=== PATIENT | female | born 1940 | race Caucasian/White ===

== ENCOUNTER 2021-04-22 16:24 | Inpatient (IN) | payer MEDICARE, SELFPAY ==
[2021-04-22] VITALS (8 sets, daily range): BP systolic 90–169; BP diastolic 40–114; PULSE 60–154; RESP 15–22; O2SAT 80–100; BMI 25.2
--- NOTE | ~2021-04-22 | XR_ITS ---
EXAMINATION: XR CHEST CLINICAL INFORMATION: Hypoxia. COMPARISON: None TECHNIQUE: Frontal view of the chest was obtained. FINDINGS: The lungs are well-expanded with bilateral patchy linear densities in both lungs but no focal consolidation or pleural effusion seen. The heart size and pulmonary vascularity is normal. No gross bony abnormality. There is mild dextroscoliosis. XR/XR chest 1V IMPRESSION: Increased bilateral parahilar linear markings in density suggestive of interstitial pneumonitis or edema. There is no pleural effusion.
--- NOTE | 2021-04-22 16:39 | ECG_ITS ---
Test Reason : arrthmia Blood Pressure : / mmHG Vent. Rate : 143 BPM Atrial Rate : 000 BPM P-R Int : 000 ms QRS Dur : 080 ms QT Int : 266 ms P-R-T Axes : 000 -14 069 degrees QTc Int : 410 ms Atrial fibrillation with rapid ventricular response Cannot exclude old Inferior infarct , age undetermined Abnormal ECG No previous ECGs available Referred By: Perla Plummer Electronically Signed By:ORACIO CONDON
--- NOTE | 2021-04-22 16:50 | ED_ITS ---
HPI - URI/Sore Throat General Chief Complaint: Dyspnea Stated Complaint: + COVID SOB 82% RA, 94% 10LPM FROM SNF PER EMS Time Seen by Provider: 04/22/21 16:36 Source: patient, family and EMS Mode of arrival: EMS Limitations: altered mental status History of Present Illness HPI Narrative: 80-year-old female presents via EMS from half-way facility for altered mental status and hypoxia. Tested COVID positive on 04/13/2021, has been on the COVID unit at half-way [facility]. Over the past few days patient's mental status has been declining. Patient presents with a heart rate in the 150s, respiration rate 20-26, O2 sat 90% on 10 L non-rebreather. Pertinent past history: other (COVID-19) Onset (ago): day(s) (3, COVID positive 04/13/2021) Consistency: constant Severity: severe Relieving factors: nothing Context: sick contacts Related Data Home Medications Medication Instructions Recorded Confirmed acetaminophen 325 mg tablet 650 mg PO Q4H PRN 04/22/21 04/22/21 apixaban 5 mg tablet (Eliquis) 1 tab PO BID 04/22/21 04/22/21 bisacodyl 10 mg rectal suppository 10 mg [place] DAILY PRN 04/22/21 04/22/21 cholestyramine (with sugar) 4 gram 1 packet PO BID 04/22/21 04/22/21 powder for susp in a packet loperamide 2 mg tablet 2 mg PO QID PRN 04/22/21 04/22/21 metformin 1,000 mg tablet 1 tab PO DAILY 04/22/21 04/22/21 metformin 500 mg tablet 1 tab PO BEDTIME 04/22/21 04/22/21 metoprolol tartrate 25 mg tablet 1 tab PO BID 04/22/21 04/22/21 multivitamin 1 tab PO DAILY 04/22/21 04/22/21 Allergies Allergy/AdvReac Type Severity Reaction Status Date / Time No Known Allergies Allergy Verified 04/22/21 16:39 Review of Systems Review of Systems: Yes Unobtainable due to mental status PMFSH Past Medical History Attestation statement: The following information was validated with the patient. Source: old records reviewed Social History Social History Advance Directives: No Advance Directives Information Provided: Yes Physical Exam Vital Signs: Vital Signs: Last Vital Signs Pulse 101 H 04/22/21 19:17 Resp 18 04/22/21 19:17 BP 169/95 H 04/22/21 19:17 Pulse Ox 100 04/22/21 19:17 BMI result Body Mass Index 25.2 Appearance: Responsive to painful stimulus. Moderate distress. Eyes: Pupils equal, round and reactive to light. ENT: Dry mucous membranes. Neck: Normal inspection. CVS: Tachycardic heart rate and rhythm. Apical pulses equal to extremities. Respiratory: Moderate respiratory distress. Diminished lung sounds throughout. Abdomen: Soft and nontender. Skin: Skin warm and dry. Pale. Extremities: No lower extremity edema. Neuro: No motor deficit. No sensory deficit. Course Course Course Narrative: 80-year-old female presents via EMS for hypoxia and altered mental status. Tested positive for COVID-19 on 04/13/2021. 5:00 p.m. discussion with family regarding code status and patient presentation. Family stated that patient has declined over the past few days, half-way facility reported that patient was combative, had altered mental status, refusing to eat and drink. Review of records from half-way facility in [facility] patient is being treated for UTI at this time with ceftriaxone. It was noted that patient's heart rate was in the 160s, EKG indicates AFib with RVR. Patient is on metoprolol, did not take her medications today per son's report of what the half-way facility had stated to him. Will give IV metoprolol. 1 L fluids. Will hold off on albuterol that was ordered earlier was patient is in AFib RVR. 5:25 p.m. nurse push 2.5 mg of metoprolol IV push, heart rate down to the 90s. 5:45 p.m. 2nd dose of 2.5 metoprolol given, patient is unable to follow directions, pulling at non-rebreather and IV. Order for mechanical soft restraint at this time. 5:55 p.m. discussion with family, Manuel her son who is POA, plan is for DNR DNI, okay for noninvasive ventilation and fluid resuscitation. This conversation and decision was also discussed in detail with Manuel and Dr. Bailey. 6:15 p.m. O2 sats dropped when patient's mask comes off her face. Mask secured to face by this [employer] with paper tape. O2 sat remains at 92-93% with mask in place. Patient does have unlabored respirations with mask on. Do not feel that CPAP is necessary at this time as long his mask stays in place. Unable to obtain 1-1 for this patient. Circulation continues to be brisk to the upper extremities. Soft restraints remain in place. 7:20 p.m. discussion with hospitalist, plan of care is to admit for COVID-19 hypoxia, COVID pneumonia, and altered mental status. 8:05 p.m. discussion with hospitalist, plan of care is for Cardizem drip and some IV Haldol with plan to discontinue soft restraints. QT interval 266, QTC 410 8:10 p.m. heart rate fluctuates between 90 and 110. Plan is to hold off on Car dizem drip and order p.r.n. IV Lopressor. Plan was discussed with hospitalist and we all agree with plan of care. Consultations Consultation #1: Earnest Time: 19:21 MDM - URI/Sore Throat MDM Narrative Medical decision making narrative: Sepsis, COVID pneumonia, UTI Differential Diagnosis Differential diagnosis: Likely upper respiratory infection, viral infection, bronchitis, influenza and pharyngitis Medical Records Attestation: I reviewed the patient's medical records. Lab Data Attestation: I reviewed the patient's lab results. Result diagrams: 04/22/21 17:15 04/22/21 18:57 Labs: Lab Results 04/22/21 04/22/21 04/22/21 Range/Units 17:15 17:15 17:15 WBC 6.8 (4.8-10.8) X10*3/uL RBC 5.26 (4.20-5.50) X10*6/uL Hgb 14.1 (12.0-16.0) g/dl Hct 42.7 (37.0-47.0) % MCV 81.2 (80.0-98.0) fL MCH 26.8 L (27.0-33.0) pg MCHC 33.0 (31.0-35.0) g/dl RDW 15.6 (11.0-16.0) % Plt Count 260 (160-400) X10*3/uL MPV 9.1 L (9.4-12.3) fL Immature Gran % (Auto) 1.3 H (0.0-0.4) % Neut % (Auto) 84.5 H (45-73) % Lymph % (Auto) 8.1 L (20-40) % [place] % (Auto) 6.0 (2-11) % Eos % (Auto) 0.0 (0-4) % Baso % (Auto) 0.1 (0-2) % Lymph # (Auto) 0.6 L (1.2-4.9) X10*3/uL [place] # (Auto) 0.4 (0.1-1.2) X10*3/uL Eos # (Auto) 0.0 (0.0-0.4) X10*3/uL Baso # (Auto) 0.0 (0.0-0.2) X10*3/uL Abs Immat Gran (auto) 0.09 H (0.00-0.03) X10*3/uL Absolute Neuts (auto) 5.8 (2.0-8.3) x10*3/uL Absolute Nucleated RBC 0.000 (0.0-0.012) X10*3/uL Nucleated RBC % (auto) 0.0 (0.0-0.2) /100WBC PT (9.9-13.0) SEC INR (0.9-1.1) APTT (24.1-38.0) SEC VBG pH (7.32-7.43) VBG pCO2 mmHg VBG pO2 mmHg VBG HCO3 (22-26) mmol/L VBG O2 Saturation % VBG Base Excess mmol/L Sodium (135-145) mmol/L Potassium (3.3-5.1) mmol/L Chloride (96-108) mmol/L Carbon Dioxide (22-29) mmol/L Anion Gap (12-20) BUN (9-16) mg/dL Creatinine (0.5-1.4) mg/dL Estim Creat Clear Calc Estimated GFR Random Glucose (60-115) mg/dL Lactic Acid 2.0 (0.5-2.0) mmol/L Calcium (8.4-10.2) mg/dL Total Bilirubin (0.0-1.0) mg/dL Direct Bilirubin (0.0-0.5) mg/dL AST (5-31) U/L ALT (0-31) U/L Alkaline Phosphatase (39-117) U/L Troponin I High Sens 10.8 (<3.5-17.0) ng/L Total Protein (6.5-8.0) g/dL Albumin (3.5-5.0) g/dL Lipase (8-78) U/L COVID-19 (MELINDA) (Negative) COVID-19 Clin Com 04/22/21 04/22/21 04/22/21 Range/Units 17:27 17:27 17:32 WBC (4.8-10.8) X10*3/uL RBC (4.20-5.50) X10*6/uL Hgb (12.0-16.0) g/dl Hct (37.0-47.0) % MCV (80.0-98.0) fL MCH (27.0-33.0) pg MCHC (31.0-35.0) g/dl RDW (11.0-16.0) % Plt Count (160-400) X10*3/uL MPV (9.4-12.3) fL Immature Gran % (Auto) (0.0-0.4) % Neut % (Auto) (45-73) % Lymph % (Auto) (20-40) % [place] % (Auto) (2-11) % Eos % (Auto) (0-4) % Baso % (Auto) (0-2) % Lymph # (Auto) (1.2-4.9) X10*3/uL [place] # (Auto) (0.1-1.2) X10*3/uL Eos # (Auto) (0.0-0.4) X10*3/uL Baso # (Auto) (0.0-0.2) X10*3/uL Abs Immat Gran (auto) (0.00-0.03) X10*3/uL Absolute Neuts (auto) (2.0-8.3) x10*3/uL Absolute Nucleated RBC (0.0-0.012) X10*3/uL Nucleated RBC % (auto) (0.0-0.2) /100WBC PT 18.5 H (9.9-13.0) SEC INR 1.6 H (0.9-1.1) APTT 33.6 (24.1-38.0) SEC VBG pH 7.20 L* (7.32-7.43) VBG pCO2 27 mmHg VBG pO2 46 mmHg VBG HCO3 11 L (22-26) mmol/L VBG O2 Saturation 68.0 % VBG Base Excess -15.0 mmol/L Sodium (135-145) mmol/L Potassium (3.3-5.1) mmol/L Chloride (96-108) mmol/L Carbon Dioxide (22-29) mmol/L Anion Gap (12-20) BUN (9-16) mg/dL Creatinine (0.5-1.4) mg/dL Estim Creat Clear Calc Estimated GFR Random Glucose (60-115) mg/dL Lactic Acid (0.5-2.0) mmol/L Calcium (8.4-10.2) mg/dL Total Bilirubin (0.0-1.0) mg/dL Direct Bilirubin (0.0-0.5) mg/dL AST (5-31) U/L ALT (0-31) U/L Alkaline Phosphatase (39-117) U/L Troponin I High Sens (<3.5-17.0) ng/L Total Protein (6.5-8.0) g/dL Albumin (3.5-5.0) g/dL Lipase (8-78) U/L COVID-19 (MELINDA) Positive A (Negative) COVID-19 Clin Com See Note 04/22/21 Range/Units 18:57 WBC (4.8-10.8) X10*3/uL RBC (4.20-5.50) X10*6/uL Hgb (12.0-16.0) g/dl Hct (37.0-47.0) % MCV (80.0-98.0) fL MCH (27.0-33.0) pg MCHC (31.0-35.0) g/dl RDW (11.0-16.0) % Plt Count (160-400) X10*3/uL MPV (9.4-12.3) fL Immature Gran % (Auto) (0.0-0.4) % Neut % (Auto) (45-73) % Lymph % (Auto) (20-40) % [place] % (Auto) (2-11) % Eos % (Auto) (0-4) % Baso % (Auto) (0-2) % Lymph # (Auto) (1.2-4.9) X10*3/uL [place] # (Auto) (0.1-1.2) X10*3/uL Eos # (Auto) (0.0-0.4) X10*3/uL Baso # (Auto) (0.0-0.2) X10*3/uL Abs Immat Gran (auto) (0.00-0.03) X10*3/uL Absolute Neuts (auto) (2.0-8.3) x10*3/uL Absolute Nucleated RBC (0.0-0.012) X10*3/uL Nucleated RBC % (auto) (0.0-0.2) /100WBC PT (9.9-13.0) SEC INR (0.9-1.1) APTT (24.1-38.0) SEC VBG pH (7.32-7.43) VBG pCO2 mmHg VBG pO2 mmHg VBG HCO3 (22-26) mmol/L VBG O2 Saturation % VBG Base Excess mmol/L Sodium 142 (135-145) mmol/L Potassium 4.3 (3.3-5.1) mmol/L Chloride 115 H (96-108) mmol/L Carbon Dioxide 13 L (22-29) mmol/L Anion Gap 18 (12-20) BUN 46 H (9-16) mg/dL Creatinine 1.24 (0.5-1.4) mg/dL Estim Creat Clear Calc 32.7 Estimated GFR 42 Random Glucose 139 H (60-115) mg/dL Lactic Acid (0.5-2.0) mmol/L Calcium 9.2 (8.4-10.2) mg/dL Total Bilirubin 0.3 (0.0-1.0) mg/dL Direct Bilirubin 0.2 (0.0-0.5) mg/dL AST 23 (5-31) U/L ALT 14 (0-31) U/L Alkaline Phosphatase 96 (39-117) U/L Troponin I High Sens (<3.5-17.0) ng/L Total Protein 6.8 (6.5-8.0) g/dL Albumin 3.4 L (3.5-5.0) g/dL Lipase 25 (8-78) U/L COVID-19 (MELINDA) (Negative) COVID-19 Clin Com Imaging Data Chest x-ray: Attestation: I personally reviewed and interpreted this imaging study as follows: Radiologist's impression: EXAMINATION: XR CHEST CLINICAL INFORMATION: Hypoxia. COMPARISON: None TECHNIQUE: Frontal view of the chest was obtained. FINDINGS: The lungs are well-expanded with bilateral patchy linear densities in both lungs but no focal consolidation or pleural effusion seen. The heart size and pulmonary vascularity is normal. No gross bony abnormality. There is mild dextroscoliosis. XR/XR chest 1V IMPRESSION: Increased bilateral parahilar linear markings in density suggestive of interstitial pneumonitis or edema. ? There is no pleural effusion. ECG Data Attestation: I personally reviewed and interpreted this ECG as follows: ECG interpretation date: 04/22/21 ECG interpretation time: 17:01 Prior ECG tracings: not available for review Interpretation: Vent. rate 143 BPM [place] interval * ms QRS duration 80 ms QT/QTc 266/410 ms P-R-T axes * -14 69 Atrial fibrillation with rapid ventricular response Inferior infarct , age undetermined Abnormal ECG No previous ECGs available Critical Care Time Critical Care Time Critical Care Time: Yes Total Critical Care Time: 65 Attestation: I have personally provided critical care time exclusive of time spent on separately billable procedures. Time includes review of laboratory data, radiology results, discussion with consultants, and monitoring for potential decompensation. Interventions were performed as documented. Discharge Plan Discharge Clinical Impression: 2019 novel coronavirus-infected pneumonia (NCIP), Hypoxia Altered mental status Qualifiers: Altered mental status type: unspecified Qualified Code(s): R41.82 - Altered mental status, unspecified Patient Disposition: Admitted As Inpatient
[2021-04-22] MEDS: Metoprolol Tartrate 5 MG/5 ML VIAL IVPUSH (17:20)
--- NOTE | 2021-04-22 17:20 | PC.NURSE ---
started to give metoprol 5g iv but pt's only received 2.5mg and hr dropped to the 70-90's, bp holding at 130/87 still a-fib on the monitor tara the pa aware pt continuos on pulling all medical equipment off of her, pt is currently on the non-rebreather ..
[2021-04-22 17:21] LABS: MANUAL DIFF FLAG NO
[2021-04-22] MEDS: Metoprolol Tartrate 5 MG/5 ML VIAL 2.5 MG IVPUSH ×2 (17:21→17:45)
[2021-04-22 17:23] LABS: Basophils Percent Auto 0.1 % (0-2); Hematocrit 42.7 % (37.0-47.0); Hemoglobin 14.1 g/dl (12.0-16.0); Imm Gran Abs Auto 0.09 X10*3/uL (0.00-0.03); Imm Gran Pct Auto 1.3 % (0.0-0.4); Lymphocytes Absolute Auto 0.6 X10*3/uL (1.2-4.9); Lymphocytes Percent Auto 8.1 % (20-40); Mean Corpuscular Hemoglobin 26.8 pg (27.0-33.0); Mean Corpuscular Volume 81.2 fL (80.0-98.0); Mean Platelet Volume 9.1 fL (9.4-12.3); Monocytes Absolute Auto 0.4 X10*3/uL (0.1-1.2); Neutrophils Absolute Auto 5.8 x10*3/uL (2.0-8.3); Neutrophils Percent Auto 84.5 % (45-73); Platelet Count 260 X10*3/uL (160-400); Red Blood Count 5.26 X10*6/uL (4.20-5.50); Red Cell Distribution Width 15.6 % (11.0-16.0); White Blood Count 6.8 X10*3/uL (4.8-10.8)
[2021-04-22] MEDS: dexAMETHasone sod phosphate 10 MG/ML VIAL IVPUSH (17:23)
[2021-04-22] MEDS: 0.9 % Sodium Chloride 1,000 ML 999 ML IVCONT (17:24)
[2021-04-22 17:41] LABS: VBG HCO3 11 mmol/L (22-26); VBG pCO2 27 mmHg; VBG pO2 46 mmHg
[2021-04-22 17:41] LABS: INTERNATIONAL NORM RATIO 1.6 (0.9-1.1); Prothrombin Time 18.5 SEC (9.9-13.0)
[2021-04-22 17:42] LABS: Venous Blood Gas Refer to POC result
[2021-04-22 17:44] LABS: Partial Thromboplastin Time 33.6 SEC (24.1-38.0)
[2021-04-22 17:49] LABS: COVID-19 Test Positive (Negative); IDNOW Serial# 9DD0AD1C
[2021-04-22 17:53] LABS: Troponin-I High Sensitivity 10.8 ng/L (<3.5-17.0)
--- NOTE | 2021-04-22 18:14 | PC.NURSE ---
pt is currently in soft restrains pulling every medical equipment off
[2021-04-22] MEDS: Azithromycin 500 MG in 0.9 % Sodium Chloride 250 ML 125 MG IV (19:16)
[2021-04-22 19:26] LABS: Alanine Aminotransferase 14 U/L (0-31); Albumin Level 3.4 g/dL (3.5-5.0); Alkaline Phosphatase 96 U/L (39-117); Anion Gap 18 (12-20); Aspartate Amino Transferase 23 U/L (5-31); Bilirubin Direct 0.2 mg/dL (0.0-0.5); Bilirubin Total 0.3 mg/dL (0.0-1.0); Blood Urea Nitrogen 46 mg/dL (9-16); Calcium 9.2 mg/dL (8.4-10.2); Carbon Dioxide 13 mmol/L (22-29); Chloride 115 mmol/L (96-108); Creatinine Clr Calc Pharmacy 32.7; Estimated Glomerular Filt Rate 42; Glucose Random 139 mg/dL (60-115); Lipase 25 U/L (8-78); Potassium 4.3 mmol/L (3.3-5.1); Sodium 142 mmol/L (135-145); Total Protein 6.8 g/dL (6.5-8.0)
[2021-04-22] MEDS: Haloperidol Lactate 5 MG/ML VIAL 2.5 MG IVPUSH (20:28)
--- NOTE | 2021-04-22 20:28 | PHA.MEDREC ---
Pharmacy Consult ? Medication Reconciliation Pharmacy has completed the medication reconciliation. Med list from [facility]. No remarkable issues. Cynthia Link RPh
--- NOTE | 2021-04-22 21:51 | PM.IMHP ---
History of Present Illness Date of Service: 04/22/21 Chief Complaint: AMS This is an 80-year-old female with history of AFib, diabetes who sent to the hospital from long-term with altered mental status. Patient had tested positive for COVID-19 on 04/13/2021 and has been at the COVID unit at the long-term since then but has developed altered mental status over the past few days and therefore sent to the ED for further evaluation. History is obtained mostly from ED PA as patient is very altered and unable to give her own history. On arrival to the ED patient was found to have heart rate of 154 in AFib with RVR, respiratory rate of 22, blood pressure 156/80, satting 99% on non-rebreather labs were found to be significant for pH of 7.20 bicarb of 13, BUN of 44, creatinine of 1.24, BNP of 347, and a UA that is positive for leukocyte Estrace and WBC. COVID-19 positive. Chest x-ray shows increased bilateral per her all linear markings in suggestive of PNA vs edema Pt given multiple dose iv push Cardizem with some affect on the heart rate but heart rate keeps going up to the 120s. Patient started on Cardizem drip. Unable to obtain accurate past medical history as patient is altered. some Past medical history is a presumed her home medications. Review of Systems Review of Systems: Yes Unobtainable due to mental condition [facility] Medical History (Updated 04/23/21 @ 05:50 by Karon Tinoco MD) Atrial fibrillation Diabetes Social History Advance Directives: No Advance Directives Information Provided: Yes Meds Allergies Allergy/AdvReac Type Severity Reaction Status Date / Time No Known Allergies Allergy Verified 04/22/21 16:39 Home Medications Medication Instructions Recorded Confirmed Last Taken Type acetaminophen 325 mg tablet 650 mg PO Q4H PRN 04/22/21 04/22/21 Unknown History apixaban 5 mg tablet (Eliquis) 1 tab PO BID 04/22/21 04/22/21 04/22/21 History bisacodyl 10 mg rectal suppository 10 mg [place] DAILY PRN 04/22/21 04/22/21 Unknown History cholestyramine (with sugar) 4 gram 1 packet PO BID 01/02/0104/22/21 04/22/21 History powder for susp in a packet loperamide 2 mg tablet 2 mg PO QID PRN 04/22/21 04/22/21 Unknown History metformin 1,000 mg tablet 1 tab PO DAILY 04/22/21 04/22/21 04/22/21 History metformin 500 mg tablet 1 tab PO BEDTIME 04/22/21 04/22/21 04/21/21 History metoprolol tartrate 25 mg tablet 1 tab PO BID 04/22/21 04/22/21 04/22/21 History multivitamin 1 tab PO DAILY 04/22/21 04/22/21 04/22/21 History Physical Exam Vital Signs and Narrative: Vital Signs: Last Vital Signs Pulse 102 H 04/22/21 21:41 Resp 15 04/22/21 21:41 BP 134/83 04/22/21 21:41 Pulse Ox 99 04/22/21 21:41 BMI result Body Mass Index 25.2 Const: Other: somnolent, arousable, confused Eyes: General: appearance normal, both eyes and all related structures Resp: Other: tachypnea, crackles bilaterally Cardio: Other: tachycardic, regular rhythm GI: Palpation (GI): Soft to palpation Auscultation: normal bowel sounds Skin: General skin exam: no rashes or lesions noted Neuro: Other: somnolent, confused Extrem: General: Yes normal to inspection and Yes no pedal edema Results Labs CBC and Chem 7: 04/22/21 17:15 04/22/21 21:40 Labs: Laboratory Results - last 24 hr 04/22/21 04/22/21 04/22/21 17:15 17:15 17:15 MCV 81.2 MCH 26.8 L MCHC 33.0 RDW 15.6 Plt Count 260 MPV 9.1 L Immature Gran % (Auto) 1.3 H Neut % (Auto) 84.5 H Lymph % (Auto) 8.1 L [place] % (Auto) 6.0 Eos % (Auto) 0.0 Baso % (Auto) 0.1 Lymph # (Auto) 0.6 L [place] # (Auto) 0.4 Eos # (Auto) 0.0 Baso # (Auto) 0.0 Abs Immat Gran (auto) 0.09 H Absolute Neuts (auto) 5.8 Absolute Nucleated RBC 0.000 Nucleated RBC % (auto) 0.0 PT INR APTT VBG pH VBG pCO2 VBG pO2 VBG HCO3 VBG O2 Saturation VBG Base Excess Anion Gap Estim Creat Clear Calc Estimated GFR Random Glucose Lactic Acid 2.0 Calcium Total Bilirubin Direct Bilirubin AST ALT Alkaline Phosphatase Troponin I High Sens 10.8 Total Protein Albumin Lipase COVID-19 (MELINDA) COVID-19 Clin Com 04/22/21 04/22/21 04/22/21 17:27 17:27 17:32 MCV MCH MCHC RDW Plt Count MPV Immature Gran % (Auto) Neut % (Auto) Lymph % (Auto) [place] % (Auto) Eos % (Auto) Baso % (Auto) Lymph # (Auto) [place] # (Auto) Eos # (Auto) Baso # (Auto) Abs Immat Gran (auto) Absolute Neuts (auto) Absolute Nucleated RBC Nucleated RBC % (auto) PT 18.5 H INR 1.6 H APTT 33.6 VBG pH 7.20 L* VBG pCO2 27 VBG pO2 46 VBG HCO3 11 L VBG O2 Saturation 68.0 VBG Base Excess -15.0 Anion Gap Estim Creat Clear Calc Estimated GFR Random Glucose Lactic Acid Calcium Total Bilirubin Direct Bilirubin AST ALT Alkaline Phosphatase Troponin I High Sens Total Protein Albumin Lipase COVID-19 (MELINDA) Positive A COVID-19 [employer] Com See Note 04/22/21 18:57 MCV MCH MCHC RDW Plt Count MPV Immature Gran % (Auto) Neut % (Auto) Lymph % (Auto) [place] % (Auto) Eos % (Auto) Baso % (Auto) Lymph # (Auto) [place] # (Auto) Eos # (Auto) Baso # (Auto) Abs Immat Gran (auto) Absolute Neuts (auto) Absolute Nucleated RBC Nucleated RBC % (auto) PT INR APTT VBG pH VBG pCO2 VBG pO2 VBG HCO3 VBG O2 Saturation VBG Base Excess Anion Gap 18 Estim Creat Clear Calc 32.7 Estimated GFR 42 Random Glucose 139 H Lactic Acid Calcium 9.2 Total Bilirubin 0.3 Direct Bilirubin 0.2 AST 23 ALT 14 Alkaline Phosphatase 96 Troponin I High Sens Total Protein 6.8 Albumin 3.4 L Lipase 25 COVID-19 (MELINDA) COVID-19 Clin Com Imaging Radiologist's Impressions: Impressions Chest X-Ray 04/22/21 18:20 IMPRESSION: Increased bilateral parahilar linear markings in density suggestive of interstitial pneumonitis or edema. There is no pleural effusion. Assessment and Plan (1) 2019 novel coronavirus-infected pneumonia (NCIP): Status: Acute (2) Acute respiratory failure with hypoxia: Status: Acute (3) Encephalopathy: Status: Acute (4) UTI (urinary tract infection): Status: Acute (5) Metabolic acidosis: Status: Acute 80-year-old female with past medical history of diabetes as well as AFib who presents to the hospital with altered mental status from long-term. # Encephalopathy - most likely multifactorial in the setting of hypoxia, COVID-19 infection as well as UTI - will treat UTI with IV antibiotics, oxygen, as well as dexamethasone for COVID-19 - Haldol p.r.n. for agitation and restlessness ( patient was pulling at her oxygen mask and IV lines and therefore given 2 doses of IV Haldol) - follow mentation - baseline is alert and oriented # acute hypoxic respiratory failure - secondary to COVID-19 infection as well as CHF given her elevated BNP as well as edema - will add dexamethasone - continue oxygen as needed - Titrate o2 as tolerated # UTI - positive UA - will treat with IV antibiotics - follow cultures # metabolic acidosis - unclear with driving metabolic acidosis possibly secondary to elevated urea as BUN is slightly elevated - normal lactic acid - no increase in CO2 - patient was on bicarb D5 water fluid but given her elevated BNP and possible edema seen on chest x-ray fluids have been stopped - follow VBG as well as BMP # CHF - has elevated BNP, chest x-ray demonstrating edema - no documented history of CHF, not on any diuretic - will start with 40 IV Lasix - will obtain echocardiogram - consult cardiology # AFib with RVR - most likely secondary to all of the above - on Cardizem drip - continue Eliquis and metoprolol # diabetes - will hold metformin - start low-dose sliding scale insulin - diabetic diet DVT prophylaxis: Eliquis Quality Stroke Does the patient have a stroke diagnosis?: No VTE Prior VTE?: No VTE Risk Level:: Medical - moderate - high VTE Device Contraindication: Treatment Not Indicated VTE Drug Contraindication: N/A - Med Ordered
[2021-04-22 21:56] LABS: Venous Blood Gas Refer to POC result
[2021-04-22 21:58] LABS: VBG Base Excess -12.9 mmol/L; VBG HCO3 12 mmol/L (22-26); VBG pCO2 25 mmHg; VBG pH 7.27 (7.32-7.43); VBG pO2 46 mmHg
[2021-04-22 22:00] LABS: Anion Gap 19 (12-20); Blood Urea Nitrogen 44 mg/dL (9-16); Calcium 9.4 mg/dL (8.4-10.2); Carbon Dioxide 12 mmol/L (22-29); Chloride 116 mmol/L (96-108); Creatinine Clr Calc Pharmacy 33.5; Estimated Glomerular Filt Rate 43; Glucose Random 141 mg/dL (60-115); Potassium 4.6 mmol/L (3.3-5.1); Sodium 142 mmol/L (135-145)
[2021-04-22 22:06] LABS: B Type Natriuretic Peptide 347 pg/mL (<100)
[2021-04-22 22:11] LABS: Appearance Urine CLOUDY; Color Urine YELLOW; Glucose Urine UA NEG (NEG); Leukocyte Esterase Urine 3+ (NEG); Nitrite Urine NEG (NEG); Specific Gravity - Urine 1.025 (1.005-1.025); UACC Culture Trigger YES; Urine Blood 3+ (NEG); Urine Ketones 15 MG/DL (NEG); Urine Protein 2+ MG/DL (NEG-TRACE)
[2021-04-22 22:20] LABS: Squamous Epithelial Cell Urine 2+ /LPF; WBC Urine TNTC /HPF (0-4)
[2021-04-22 22:21] LABS: Amorphous Sediment Urine TRACE /LPF; Bacteria Urine TRACE /LPF
[2021-04-22] MEDS: cefTRIAXone sodium 1 GM in 0.9 % Sodium Chloride 50 ML IV (22:36)
[2021-04-23] VITALS (14 sets, daily range): BP systolic 82–166; BP diastolic 54–105; PULSE 61–133; RESP 12–28; TEMP 36.3–36.4; O2SAT 94–100
[2021-04-23] MEDS: Sodium Bicarbonate 8.4% 100 MEQ in Dextrose 5 % 900 ML 50 MEQ IV (01:24)
--- NOTE | 2021-04-23 01:45 | PC.NURSE ---
this RN walked into room to medicate pt and found pt had removed NRB and was pulling at IV lines/rn cardiac lines. This RN secured NRB on face, reapplied soft restraints per provider order and started fluids per JUN. CMS+ bilateral wrists, no evidence of skin breakdown, radial pulses palpable bilaterally, cap refill <2 seconds. pt 02 sat 94% on NRB but pt tachycardic and hypertensive at this time. pt remains agitated. Hospitalist notified Respiratory therapy contact to assess pt for oxygen needs/to see if pt would benefit from different type of 02 administration.
[2021-04-23] MEDS: Haloperidol Lactate 5 MG/ML VIAL 2.5 MG IVPUSH (01:53)
[2021-04-23] MEDS: Metoprolol Tartrate 5 MG/5 ML VIAL 2.5 MG IVPUSH (01:59)
--- NOTE | 2021-04-23 02:10 | PC.NURSE ---
pt switched to Shah nasal cannula at 15L by RT pt now satting 100% on 15L Shah nasal cannula
[2021-04-23] MEDS: Morphine Sulfate 2 MG/ML CARTRIDGE IVPUSH (03:00)
[2021-04-23] MEDS: dilTIAZem HCL 125 MG in 0.9 % Sodium Chloride 100 ML 10 MG IVCONT (03:19)
[2021-04-23 06:37] LABS: MANUAL DIFF FLAG NO
[2021-04-23 06:39] LABS: Venous Blood Gas Refer to POC result
[2021-04-23 06:40] LABS: Basophils Percent Auto 0.2 % (0-2); Hematocrit 38.5 % (37.0-47.0); Hemoglobin 12.6 g/dl (12.0-16.0); Imm Gran Abs Auto 0.09 X10*3/uL (0.00-0.03); Lymphocytes Absolute Auto 0.5 X10*3/uL (1.2-4.9); Lymphocytes Percent Auto 10.1 % (20-40); Mean Corpuscular HGB Conc 32.7 g/dl (31.0-35.0); Mean Corpuscular Hemoglobin 26.5 pg (27.0-33.0); Mean Corpuscular Volume 80.9 fL (80.0-98.0); Mean Platelet Volume 9.7 fL (9.4-12.3); Monocytes Absolute Auto 0.3 X10*3/uL (0.1-1.2); Monocytes Percent Auto 6.1 % (2-11); Neutrophils Absolute Auto 3.7 x10*3/uL (2.0-8.3); Neutrophils Percent Auto 81.6 % (45-73); Platelet Count 254 X10*3/uL (160-400); Red Blood Count 4.76 X10*6/uL (4.20-5.50); Red Cell Distribution Width 15.6 % (11.0-16.0); VBG Base Excess -15.2 mmol/L; VBG HCO3 10 mmol/L (22-26); VBG pCO2 23 mmHg; VBG pH 7.24 (7.32-7.43); VBG pO2 53 mmHg; White Blood Count 4.6 X10*3/uL (4.8-10.8)
[2021-04-23 07:10] LABS: Anion Gap 20 (12-20); Blood Urea Nitrogen 48 mg/dL (9-16); Calcium 9.5 mg/dL (8.4-10.2); Carbon Dioxide 12 mmol/L (22-29); Chloride 115 mmol/L (96-108); Creatinine Clr Calc Pharmacy 30.3; Estimated Glomerular Filt Rate 38; Glucose Random 242 mg/dL (60-115); Potassium 4.3 mmol/L (3.3-5.1); Sodium 143 mmol/L (135-145)
[2021-04-23 07:32] LABS: Glucose, Whole Blood 192 mg/dL (60-115)
[2021-04-23] MEDS: Insulin Lispro 100 UNIT/ML 3 ML VIAL SUBCUT (08:41)
[2021-04-23] MEDS: dexAMETHasone sod phosphate 4 MG/ML VIAL 6 MG IVPUSH (08:42)
[2021-04-23] MEDS: Furosemide 40 MG/4 ML VIAL IVPUSH (08:44)
--- NOTE | 2021-04-23 08:55 | PC.NURSE ---
pt cleaned up and repositioned. soft restraint released x30 mins. while in room. Soft restraint reapplied because pt continued taking off n/c and library monitor leads. pt spit out all po meds. IV meds given as documented. HR low to mid 120s. Pt seen by Dr. Padilla, continue Cardizem drip at 5ml/hr. pt rest comfortably after repositioned. will continue to monitor.
--- NOTE | 2021-04-23 09:38 | MHC.CM.PN ---
PATIENT IS IN FROM [facility] HCP IS SON, BIGG ([phone]) POTENTIAL PLAN IS FOR PATIENT TO RETURN TO FACILITY; HOWEVER THIS WILL NEED TO BE DISCUSSED WITH BIGG AT TIME OF DC, HE IS FEELING DISCOURAGED ABOUT THE CARE OF FACILITIES. CASE MANAGEMENT FOLLOWING FOR PATIENT'S RETURN. IMM 04/23 DISCUSSED AND ORIGINAL MAILED TO BIGG AT ADDRESS ON FILE PER REQUEST.
--- NOTE | 2021-04-23 11:16 | PM.CNCAR ---
History of Present Illness History of Present Illness Date of Service: 04/23/21 Chief complaint: Covid Hypoxia, Afib with rvr, UTI Narrative: This is a cardiology consultation regarding atrial fibrillation. Patient herself is not able to give any information whatsoever. She was sent from detention with altered mental status. She had apparently tested positive for COVID-19 on the 1st of this month- again +ve yesterday. She was at the COVID unit in the detention but then developed about altered mental status and then sent to the ER. She was then found to be in atrial fibrillation rapid rate. She is now on Cardizem drip. Review of Systems Review of Systems: Unable to obtain. Due to mental status. [facility] Past Medical History Medical History (Updated 04/23/21 @ 05:50 by Karon Tinoco MD) Atrial fibrillation Diabetes Family History Pertinent family history: Unable to obtain due to mental status. Social History Social History Advance Directives: No Advance Directives Information Provided: Yes service: No Current occupational status: retired [employer] Allergies Allergy/AdvReac Type Severity Reaction Status Date / Time No Known Allergies Allergy Verified 04/22/21 16:39 Active Medications: Current Medications Acetaminophen (Acetaminophen Supp 650 Mg Supp.Rect) 650 mg [place] Q6H PRN PRN Reason: Pain, Mild (Pain Scale 1-3) Apixaban (Apixaban 5 Mg Tablet) 5 mg PO BID [facility] Last Admin: 04/23/21 08:50 Dose: Not Given Documented by: Bisacodyl (Bisacodyl 10 Mg Supp.Rect) 10 mg [place] DAILY PRN PRN Reason: Constipation Cholestyramine Resin (Cholestyramine (With Sugar) 4 Gm Powd.Pack) 4 gm PO BID [facility] Last Admin: 04/23/21 08:50 Dose: Not Given Documented by: Dexamethasone Sodium Phosphate (Dexamethasone Sod Phosphate 4 Mg/Ml Vial) 6 mg IVPUSH DAILY [facility] Last Admin: 04/23/21 08:42 Dose: 6 mg Documented by: Dextrose (Dextrose 50 % 25 Gm/50 Ml Vial) 25 gm IVPUSH Q15M PRN; Protocol PRN Reason: per Hypoglycemia Standing Ord. Furosemide (Furosemide 40 Mg/4 Ml Vial) 40 mg IVPUSH DAILY [facility]; Protocol Last Admin: 04/23/21 08:44 Dose: 40 mg Documented by: Glucose (Glucose Gel 15 Gm Gel..Gram.) 15 gm PO Q15M PRN; Protocol PRN Reason: per Hypoglycemia Standing Ord. Ceftriaxone Sodium 1 gm/ (Sodium Chloride) 50 mls @ 100 mls/hr IV Q24H [facility] Last Infusion: 04/22/21 23:06 Dose: Infused Documented by: Diltiazem HCl 125 mg/ Sodium (Chloride) 125 mls @ 0 mls/hr IVCONT .Q0M [facility]; Protocol Last Admin: 04/23/21 03:19 Dose: 10 mg/hr, 10 mls/hr Documented by: Insulin Human Lispro (Insulin Lispro 100 Unit/Ml 3 Ml Vial) 0 unit SUBCUT QIDACHS [facility]; Protocol Last Admin: 04/23/21 08:41 Dose: 2 unit Documented by: Loperamide HCl (Loperamide Hcl 2 Mg Capsule) 2 mg PO QID PRN PRN Reason: Diarrhea Metoprolol Tartrate (Metoprolol Tartrate 25 Mg Tablet) 25 mg PO BID [facility]; Protocol Last Admin: 04/23/21 09:49 Dose: Not Given Documented by: Metoprolol Tartrate (Metoprolol Tartrate 5 Mg/5 Ml Vial) 2.5 mg IVPUSH Q6H PRN PRN Reason: HR >120 Last Admin: 04/23/21 01:59 Dose: 2.5 mg Documented by: Multivitamins/Vitamin C (Multivitamin Tablet) 1 tab PO DAILY [facility] Last Admin: 04/23/21 09:47 Dose: Not Given Documented by: Ondansetron HCl (Ondansetron Hcl 4 Mg/2 Ml Vial) 4 mg IVPUSH Q8H PRN PRN Reason: Nausea and Vomiting Sodium Chloride (0.9 % Sodium Chloride Flush 3 Ml Syringe) 3 ml IVFLUSH QSHIFT [facility] Last Admin: 04/23/21 08:48 Dose: Not Given Documented by: Home Medications Medication Instructions Recorded Confirmed Last Taken Type acetaminophen 325 mg tablet 650 mg PO Q4H PRN 04/22/21 04/22/21 Unknown History apixaban 5 mg tablet (Eliquis) 1 tab PO BID 04/22/21 04/22/21 04/22/21 History bisacodyl 10 mg rectal suppository 10 mg [place] DAILY PRN 04/22/21 04/22/21 Unknown History cholestyramine (with sugar) 4 gram 1 packet PO BID 04/22/21 04/22/21 04/22/21 History powder for susp in a packet loperamide 2 mg tablet 2 mg PO QID PRN 04/22/21 04/22/21 Unknown History metformin 1,000 mg tablet 1 tab PO DAILY 04/22/21 04/22/21 04/22/21 History metformin 500 mg tablet 1 tab PO BEDTIME 04/22/21 04/22/21 04/21/21 History metoprolol tartrate 25 mg tablet 1 tab PO BID 04/22/21 04/22/21 04/22/21 History multivitamin 1 tab PO DAILY 04/22/21 04/22/21 04/22/21 History Physical Exam Vital Signs: Vital Signs: Last Vital Signs Temp 97.6 F 04/23/21 07:02 Pulse 102 H 04/23/21 07:02 Resp 14 04/23/21 07:02 BP 151/82 H 04/23/21 07:02 Pulse Ox 100 04/23/21 07:02 BMI result Body Mass Index 25.2 Const: General: no acute distress HENMT: Other: Unremarkable Neck: Neck: Yes normal visual inspection Chest: Chest palpation & inspection: normal inspection of the chest Resp: Auscultation: no crackles and no wheezes Cardio: Palpation: normal PMI Heart sounds: S1 normal heart sound present, S2 normal heart sound present, no gallops, no murmurs and no rubs GI: Palpation (GI): Soft to palpation Back/Spine/Pelvis: Other: unremarkable Skin: Lesions: other Neuro: Cranial nerves: Yes Other cranial nerve findings present Extrem: General: Yes other Psych: Mental Status: other Objective Labs and Meds Result diagrams: 04/23/21 06:30 04/23/21 06:30 Lab results: Laboratory Results - last 24 hr 04/22/21 04/22/21 04/22/21 17:15 17:15 17:15 WBC 6.8 RBC 5.26 Hgb 14.1 Hct 42.7 MCV 81.2 MCH 26.8 L MCHC 33.0 RDW 15.6 Plt Count 260 MPV 9.1 L Immature Gran % (Auto) 1.3 H Neut % (Auto) 84.5 H Lymph % (Auto) 8.1 L [place] % (Auto) 6.0 Eos % (Auto) 0.0 Baso % (Auto) 0.1 Lymph # (Auto) 0.6 L [place] # (Auto) 0.4 Eos # (Auto) 0.0 Baso # (Auto) 0.0 Abs Immat Gran (auto) 0.09 H Absolute Neuts (auto) 5.8 Absolute Nucleated RBC 0.000 Nucleated RBC % (auto) 0.0 PT INR APTT VBG pH VBG pCO2 VBG pO2 VBG HCO3 VBG O2 Saturation VBG Base Excess Sodium Potassium Chloride Carbon Dioxide Anion Gap BUN Creatinine Estim Creat Clear Calc Estimated GFR POC Glucose Random Glucose Lactic Acid 2.0 Calcium Total Bilirubin Direct Bilirubin AST ALT Alkaline Phosphatase Troponin I High Sens 10.8 B-Natriuretic Peptide Total Protein Albumin Lipase Urine Color Urine Appearance Urine pH Ur Specific [place] Urine Protein Urine Glucose (UA) Urine Ketones Urine Blood Urine Nitrite Ur Leukocyte Esterase Urine RBC Urine WBC Ur Squamous Epith Cells Amorphous Sediment Urine Bacteria Granular Casts COVID-19 (MELINDA) COVID-19 [employer] 04/22/21 04/22/21 04/22/21 17:27 17:27 17:32 WBC RBC Hgb Hct MCV MCH MCHC RDW Plt Count MPV Immature Gran % (Auto) Neut % (Auto) Lymph % (Auto) [place] % (Auto) Eos % (Auto) Baso % (Auto) Lymph # (Auto) [place] # (Auto) Eos # (Auto) Baso # (Auto) Abs Immat Gran (auto) Absolute Neuts (auto) Absolute Nucleated RBC Nucleated RBC % (auto) PT 18.5 H INR 1.6 H APTT 33.6 VBG pH 7.20 L* VBG pCO2 27 VBG pO2 46 VBG HCO3 11 L VBG O2 Saturation 68.0 VBG Base Excess -15.0 Sodium Potassium Chloride Carbon Dioxide Anion Gap BUN Creatinine Estim Creat Clear Calc Estimated GFR POC Glucose Random Glucose Lactic Acid Calcium Total Bilirubin Direct Bilirubin AST ALT Alkaline Phosphatase Troponin I High Sens B-Natriuretic Peptide Total Protein Albumin Lipase Urine Color Urine Appearance Urine pH Ur Specific [place] Urine Protein Urine Glucose (UA) Urine Ketones Urine Blood Urine Nitrite Ur Leukocyte Esterase Urine RBC Urine WBC Ur Squamous Epith Cells Amorphous Sediment Urine Bacteria Granular Casts COVID-19 (MELINDA) Positive A COVID-19 [employer] Com See Note 04/22/21 04/22/21 04/22/21 18:57 21:40 21:40 WBC RBC Hgb Hct MCV MCH MCHC RDW Plt Count MPV Immature Gran % (Auto) Neut % (Auto) Lymph % (Auto) [place] % (Auto) Eos % (Auto) Baso % (Auto) Lymph # (Auto) [place] # (Auto) Eos # (Auto) Baso # (Auto) Abs Immat Gran (auto) Absolute Neuts (auto) Absolute Nucleated RBC Nucleated RBC % (auto) PT INR APTT VBG pH VBG pCO2 VBG pO2 VBG HCO3 VBG O2 Saturation VBG Base Excess Sodium 142 142 Potassium 4.3 4.6 Chloride 115 H 116 H Carbon Dioxide 13 L 12 L Anion Gap 18 19 BUN 46 H 44 H Creatinine 1.24 1.21 Estim Creat Clear Calc 32.7 33.5 Estimated GFR 42 43 POC Glucose Random Glucose 139 H 141 H Lactic Acid Calcium 9.2 9.4 Total Bilirubin 0.3 Direct Bilirubin 0.2 AST 23 ALT 14 Alkaline Phosphatase 96 Troponin I High Sens B-Natriuretic Peptide 347 H Total Protein 6.8 Albumin 3.4 L Lipase 25 Urine Color Urine Appearance Urine pH Ur Specific [place] Urine Protein Urine Glucose (UA) Urine Ketones Urine Blood Urine Nitrite Ur Leukocyte Esterase Urine RBC Urine WBC Ur Squamous Epith Cells Amorphous Sediment Urine Bacteria Granular Casts COVID-19 (MELINDA) COVID-19 Clin Com 04/22/21 04/22/21 04/23/21 21:42 22:05 06:30 WBC 4.6 L RBC 4.76 Hgb 12.6 Hct 38.5 MCV 80.9 MCH 26.5 L MCHC 32.7 RDW 15.6 Plt Count 254 MPV 9.7 Immature Gran % (Auto) 2.0 H Neut % (Auto) 81.6 H Lymph % (Auto) 10.1 L [place] % (Auto) 6.1 Eos % (Auto) 0.0 Baso % (Auto) 0.2 Lymph # (Auto) 0.5 L [place] # (Auto) 0.3 Eos # (Auto) 0.0 Baso # (Auto) 0.0 Abs Immat Gran (auto) 0.09 H Absolute Neuts (auto) 3.7 Absolute Nucleated RBC 0.000 Nucleated RBC % (auto) 0.0 PT INR APTT VBG pH 7.27 L VBG pCO2 25 VBG pO2 46 VBG HCO3 12 L VBG O2 Saturation 71.0 VBG Base Excess -12.9 Sodium Potassium Chloride Carbon Dioxide Anion Gap BUN Creatinine Estim Creat Clear Calc Estimated GFR POC Glucose Random Glucose Lactic Acid Calcium Total Bilirubin Direct Bilirubin AST ALT Alkaline Phosphatase Troponin I High Sens B-Natriuretic Peptide Total Protein Albumin Lipase Urine Color YELLOW Urine Appearance CLOUDY Urine pH 6.0 Ur Specific [place] 1.025 Urine Protein 2+ H Urine Glucose (UA) NEG Urine Ketones 15 Urine Blood 3+ H Urine Nitrite NEG Ur Leukocyte Esterase 3+ H Urine RBC 15-29 H Urine WBC TNTC H Ur Squamous Epith Cells 2+ Amorphous Sediment TRACE Urine Bacteria TRACE Granular Casts 1-4 COVID-19 (MELINDA) COVID-19 Clin Com 04/23/21 04/23/21 04/23/21 06:30 06:30 07:25 WBC RBC Hgb Hct MCV MCH MCHC RDW Plt Count MPV Immature Gran % (Auto) Neut % (Auto) Lymph % (Auto) [place] % (Auto) Eos % (Auto) Baso % (Auto) Lymph # (Auto) [place] # (Auto) Eos # (Auto) Baso # (Auto) Abs Immat Gran (auto) Absolute Neuts (auto) Absolute Nucleated RBC Nucleated RBC % (auto) PT INR APTT VBG pH 7.24 L VBG pCO2 23 VBG pO2 53 VBG HCO3 10 L VBG O2 Saturation 78.0 VBG Base Excess -15.2 Sodium 143 Potassium 4.3 Chloride 115 H Carbon Dioxide 12 L Anion Gap 20 BUN 48 H Creatinine 1.34 Estim Creat Clear Calc 30.3 Estimated GFR 38 POC Glucose 192 H Random Glucose 242 H Lactic Acid Calcium 9.5 Total Bilirubin Direct Bilirubin AST ALT Alkaline Phosphatase Troponin I High Sens B-Natriuretic Peptide Total Protein Albumin Lipase Urine Color Urine Appearance Urine pH Ur Specific [place] Urine Protein Urine Glucose (UA) Urine Ketones Urine Blood Urine Nitrite Ur Leukocyte Esterase Urine RBC Urine WBC Ur Squamous Epith Cells Amorphous Sediment Urine Bacteria Granular Casts COVID-19 (MELINDA) COVID-19 Clin Com ECG Interpretation: EKG with atrial fibrillation with rapid rate at 143/min. Cannot exclude old inferior infarct. Imaging Radiologist's impression: Impressions Chest X-Ray 04/22/21 18:20 IMPRESSION: Increased bilateral parahilar linear markings in density suggestive of interstitial pneumonitis or edema. There is no pleural effusion. Assessment and Plan (1) Atrial fibrillation with RVR: Status: Acute (2) 2019 novel coronavirus-infected pneumonia (NCIP): Status: Acute (3) Encephalopathy: Status: Acute High sensitivity troponins are within acceptable range. Cardiac BNP is 347. Atrial fibrillation is probably old as she is on home Eliquis. Also on home metoprolol 25 mg b.i.d.. However not clear if she actually has paroxysmal or persistent atrial fibrillation. Currently on diltiazem drip. We can go up on the home dose of beta-blockers. Will follow up with you. Procedures Date of Service Date of Service: 04/23/21
--- NOTE | 2021-04-23 11:45 | PC.NURSE ---
pt seen by Dr. Vasquez, continue diltiazem drip at 5 ml/hr, HR 101, resp 20, b/p 151/79. soft restraint removed. pt repositioned. will continue to monitor.
[2021-04-23 12:22] LABS: Glucose, Whole Blood 137 mg/dL (60-115)
--- NOTE | 2021-04-23 16:45 | PC.NURSE ---
pt repositioned, resting quietly vss, no attempts made to remove n/c or cardiac leads. HR mid to high 90s. will pass on in report.
[2021-04-23 17:15] LABS: Glucose, Whole Blood 159 mg/dL (60-115)
--- NOTE | 2021-04-23 18:46 | HO.PM.IMPN ---
Subjective Subjective Date of Service: 04/24/21 Interval History: Acute hypoxemic respiratory failure is multifactorial. Review of Systems Awake, does not answer any questions but seems comfortable otherwise Physical Exam Vital Signs: Vital Signs: Last Vital Signs Temp 97.5 F 04/23/21 11:52 Pulse 95 04/23/21 15:50 Resp 12 04/23/21 15:50 BP 155/93 H 04/23/21 15:50 Pulse Ox 94 04/23/21 11:52 BMI result Body Mass Index 25.2 physical exam: Appearance: Awake, confused, not in distress? cvs: irregular rhythm- tachycardia seems improving, [id number] , no murmur res: clear to auscultation ,no rhonchii or wheezing abd: no rebound or guarding ,nt, bs present. ext pulses present , no cyanosis . neuro: axo3 , nonfocal. Objective Data Active Medications Acetaminophen (Acetaminophen Supp 650 Mg Supp.Rect) 650 mg [place] Q6H PRN PRN Reason: Pain, Mild (Pain Scale 1-3) Apixaban (Apixaban 5 Mg Tablet) 5 mg PO BID [facility] Last Admin: 04/23/21 08:50 Dose: Not Given Documented by: MEHDI Non-Admin Reason: Patient Refused Bisacodyl (Bisacodyl 10 Mg Supp.Rect) 10 mg [place] DAILY PRN PRN Reason: Constipation Cholestyramine Resin (Cholestyramine (With Sugar) 4 Gm Powd.Pack) 4 gm PO BID [facility] Last Admin: 04/23/21 08:50 Dose: Not Given Documented by: MEHDI Non-Admin Reason: Patient Refused Dexamethasone Sodium Phosphate (Dexamethasone Sod Phosphate 4 Mg/Ml Vial) 6 mg IVPUSH DAILY [facility] Last Admin: 04/23/21 08:42 Dose: 6 mg Documented by: MEHDI Dextrose (Dextrose 50 % 25 Gm/50 Ml Vial) 25 gm IVPUSH Q15M PRN; Protocol PRN Reason: per Hypoglycemia Standing Ord. Furosemide (Furosemide 40 Mg/4 Ml Vial) 40 mg IVPUSH DAILY [facility]; Protocol Last Admin: 04/23/21 08:44 Dose: 40 mg Documented by: MEHDI Glucose (Glucose Gel 15 Gm Gel..Gram.) 15 gm PO Q15M PRN; Protocol PRN Reason: per Hypoglycemia Standing Ord. Ceftriaxone Sodium 1 gm/ (Sodium Chloride) 50 mls @ 100 mls/hr IV Q24H [facility] Last Infusion: 04/22/21 23:06 Dose: 0 mls/hr Documented by: KITA Diltiazem HCl 125 mg/ Sodium (Chloride) 125 mls @ 0 mls/hr IVCONT .Q0M [facility]; Protocol Last Titration: 04/23/21 15:20 Dose: 0 mg/hr, 0 mls/hr Documented by: MEHDI Insulin Human Lispro (Insulin Lispro 100 Unit/Ml 3 Ml Vial) 0 unit SUBCUT QIDACHS [facility]; Protocol Last Admin: 04/23/21 12:24 Dose: Not Given Documented by: MEHDI Non-Admin Reason: No Insulin Coverage Loperamide HCl (Loperamide Hcl 2 Mg Capsule) 2 mg PO QID PRN PRN Reason: Diarrhea Metoprolol Tartrate (Metoprolol Tartrate 25 Mg Tablet) 25 mg PO BID [facility]; Protocol Last Admin: 04/23/21 09:49 Dose: Not Given Documented by: MEHDI Non-Admin Reason: Patient Refused Metoprolol Tartrate (Metoprolol Tartrate 5 Mg/5 Ml Vial) 2.5 mg IVPUSH Q6H PRN PRN Reason: HR >120 Last Admin: 04/23/21 01:59 Dose: 2.5 mg Documented by: KITA Multivitamins/Vitamin C (Multivitamin Tablet) 1 tab PO DAILY [facility] Last Admin: 04/23/21 09:47 Dose: Not Given Documented by: MEHDI Non-Admin Reason: Patient Refused Ondansetron HCl (Ondansetron Hcl 4 Mg/2 Ml Vial) 4 mg IVPUSH Q8H PRN PRN Reason: Nausea and Vomiting Sodium Chloride (0.9 % Sodium Chloride Flush 3 Ml Syringe) 3 ml IVFLUSH QSHIFT [facility] Last Admin: 04/23/21 16:56 Dose: Not Given Documented by: MEHDI Non-Admin Reason: IV Running Labs CBC & Chem 7: 04/23/21 06:30 04/23/21 06:30 Labs: Laboratory Results - last 24 hr 04/22/21 04/22/21 04/22/21 17:32 18:57 21:40 MCV MCH MCHC RDW Plt Count MPV Immature Gran % (Auto) Neut % (Auto) Lymph % (Auto) [place] % (Auto) Eos % (Auto) Baso % (Auto) Lymph # (Auto) [place] # (Auto) Eos # (Auto) Baso # (Auto) Abs Immat Gran (auto) Absolute Neuts (auto) Absolute Nucleated RBC Nucleated RBC % (auto) VBG pH 7.20 L* VBG pCO2 27 VBG pO2 46 VBG HCO3 11 L VBG O2 Saturation 68.0 VBG Base Excess -15.0 Anion Gap 18 19 Estim Creat Clear Calc 32.7 33.5 Estimated GFR 42 43 POC Glucose Random Glucose 139 H 141 H Calcium 9.2 9.4 Total Bilirubin 0.3 Direct Bilirubin 0.2 AST 23 ALT 14 Alkaline Phosphatase 96 B-Natriuretic Peptide Total Protein 6.8 Albumin 3.4 L Lipase 25 Urine Color Urine Appearance Urine pH Ur Specific [place] Urine Protein Urine Glucose (UA) Urine Ketones Urine Blood Urine Nitrite Ur Leukocyte Esterase Urine RBC Urine WBC Ur Squamous Epith Cells Amorphous Sediment Urine Bacteria Granular Casts 04/22/21 04/22/21 04/22/21 21:40 21:42 22:05 MCV MCH MCHC RDW Plt Count MPV Immature Gran % (Auto) Neut % (Auto) Lymph % (Auto) [place] % (Auto) Eos % (Auto) Baso % (Auto) Lymph # (Auto) [place] # (Auto) Eos # (Auto) Baso # (Auto) Abs Immat Gran (auto) Absolute Neuts (auto) Absolute Nucleated RBC Nucleated RBC % (auto) VBG pH 7.27 L VBG pCO2 25 VBG pO2 46 VBG HCO3 12 L VBG O2 Saturation 71.0 VBG Base Excess -12.9 Anion Gap Estim Creat Clear Calc Estimated GFR POC Glucose Random Glucose Calcium Total Bilirubin Direct Bilirubin AST ALT Alkaline Phosphatase B-Natriuretic Peptide 347 H Total Protein Albumin Lipase Urine Color YELLOW Urine Appearance CLOUDY Urine pH 6.0 Ur Specific [place] 1.025 Urine Protein 2+ H Urine Glucose (UA) NEG Urine Ketones 15 Urine Blood 3+ H Urine Nitrite NEG Ur Leukocyte Esterase 3+ H Urine RBC 15-29 H Urine WBC TNTC H Ur Squamous Epith Cells 2+ Amorphous Sediment TRACE Urine Bacteria TRACE Granular Casts 1-4 04/23/21 04/23/21 04/23/21 06:30 06:30 06:30 MCV 80.9 MCH 26.5 L MCHC 32.7 RDW 15.6 Plt Count 254 MPV 9.7 Immature Gran % (Auto) 2.0 H Neut % (Auto) 81.6 H Lymph % (Auto) 10.1 L [place] % (Auto) 6.1 Eos % (Auto) 0.0 Baso % (Auto) 0.2 Lymph # (Auto) 0.5 L [place] # (Auto) 0.3 Eos # (Auto) 0.0 Baso # (Auto) 0.0 Abs Immat Gran (auto) 0.09 H Absolute Neuts (auto) 3.7 Absolute Nucleated RBC 0.000 Nucleated RBC % (auto) 0.0 VBG pH 7.24 L VBG pCO2 23 VBG pO2 53 VBG HCO3 10 L VBG O2 Saturation 78.0 VBG Base Excess -15.2 Anion Gap 20 Estim Creat Clear Calc 30.3 Estimated GFR 38 POC Glucose Random Glucose 242 H Calcium 9.5 Total Bilirubin Direct Bilirubin AST ALT Alkaline Phosphatase B-Natriuretic Peptide Total Protein Albumin Lipase Urine Color Urine Appearance Urine pH Ur Specific [place] Urine Protein Urine Glucose (UA) Urine Ketones Urine Blood Urine Nitrite Ur Leukocyte Esterase Urine RBC Urine WBC Ur Squamous Epith Cells Amorphous Sediment Urine Bacteria Granular Casts 04/23/21 04/23/21 04/23/21 07:25 12:17 17:05 MCV MCH MCHC RDW Plt Count MPV Immature Gran % (Auto) Neut % (Auto) Lymph % (Auto) [place] % (Auto) Eos % (Auto) Baso % (Auto) Lymph # (Auto) [place] # (Auto) Eos # (Auto) Baso # (Auto) Abs Immat Gran (auto) Absolute Neuts (auto) Absolute Nucleated RBC Nucleated RBC % (auto) VBG pH VBG pCO2 VBG pO2 VBG HCO3 VBG O2 Saturation VBG Base Excess Anion Gap Estim Creat Clear Calc Estimated GFR POC Glucose 192 H 137 H 159 H Random Glucose Calcium Total Bilirubin Direct Bilirubin AST ALT Alkaline Phosphatase B-Natriuretic Peptide Total Protein Albumin Lipase Urine Color Urine Appearance Urine pH Ur Specific [place] Urine Protein Urine Glucose (UA) Urine Ketones Urine Blood Urine Nitrite Ur Leukocyte Esterase Urine RBC Urine WBC Ur Squamous Epith Cells Amorphous Sediment Urine Bacteria Granular Casts Microbiology Microbiology Results: Microbiology 04/22/21 22:13 Urine Culture - Preliminary Urine Catheterized - Correia Catheter Culture too young to evaluate. Assessment and Plan (1) Atrial fibrillation with RVR: Status: Acute (2) Acute respiratory failure with hypoxia: Status: Acute Assessment and Plan: 80-year-old female with? past medical history of diabetes as well as AFib who presents to the hospital with altered mental status from [facility]. 1.toxic metabolic ? Encephalopathy-? most likely? multifactorial in the setting of hypoxia, COVID-19 infection as well as UTI continue UTI with IV antibiotics, oxygen, as well as dexamethasone for COVID-19,? Haldol p.r.n.? for agitation and restlessness (? patient was pulling at her oxygen mask and IV lines and therefore given 2 doses of IV Haldol) -? follow mentation -? baseline is alert and oriented 2.? acute hypoxic respiratory failure - secondary to COVID-19 infection as well as CHF given her elevated BNP as well as edema - will add dexamethasone - continue oxygen as needed - Titrate o2 as tolerated 3. UTI - positive UA -? will treat with IV antibiotics -? follow cultures 4.? metabolic acidosis -? unclear with driving metabolic acidosis possibly secondary to elevated urea as BUN is slightly elevated -? normal lactic acid -? no increase in? CO2 -? patient was on bicarb D5 water fluid but given her elevated BNP and possible edema seen on chest x-ray fluids have been stopped -? follow VBG as well as BMP 5.? CHF -? has elevated BNP, chest x-ray demonstrating edema -? no documented history of CHF, not on any diuretic -? will start with 40 IV Lasix -? will obtain echocardiogram -? consult cardiology 6. AFib with RVR-? most likely secondary to all of the above ? on Cardizem drip d/w staff taper to stiop, metoprolol adjusted 50 mg bid -? continue Eliquis and metoprolol 7.? diabetes - ? will hold metformin -? start low-dose sliding scale insulin -? diabetic diet ?DVT prophylaxis:? Eliquis above was discussed with patient's son in detail- he understand and patient prognosis is poor. Continue on current conservative management. If patient condition changes please inform patient's son. Quality Stroke Does the patient have a stroke diagnosis?: No VTE Prior VTE?: No VTE Risk Level:: Medical - moderate - high VTE Device Contraindication: Treatment Not Indicated VTE Drug Contraindication: N/A - Med Ordered
--- NOTE | 2021-04-23 19:12 | PC.NURSE ---
REPORT FROM SERGIO DOMINIQUE. PATIENT REMOVED FROM SOFT RESTRAINTS, REPOSITIONED, PATIENT RESTING COMFORTABLY ON STRETCHER. AWAITING BED ASSIGNMENT
[2021-04-23 21:16] LABS: Glucose, Whole Blood 144 mg/dL (60-115)
[2021-04-23] MEDS: cefTRIAXone sodium 1 GM in 0.9 % Sodium Chloride 50 ML IV (23:05)
--- NOTE | 2021-04-23 23:47 | PC.NURSE ---
lab called gram positive cocci cluster 1/[address] Tinoco made aware.
[2021-04-24] VITALS (7 sets, daily range): BP systolic 134–167; BP diastolic 75–116; PULSE 76–135; RESP 12–20; TEMP 36–37; O2SAT 93–99; BMI 25.2
--- NOTE | 2021-04-24 01:10 | PC.NURSE ---
ATTEMPTING TO GIVE REPORT TO [facility] RN, TOLD SHE WOULD CALL BACK WHEN AVAILABLE
[2021-04-24] MEDS: vancomycin HCL 1,250 MG in 0.9 % Sodium Chloride 250 ML 166.67 MG IV (01:16)
--- NOTE | 2021-04-24 01:51 | PC.NURSE ---
CONTINUE TO WAIT TO GIVE REPORT TO FLOOR RN. [facility]. PATIENT CONTINUES TO SLEEP AND REST COMFORTABLY. TOLD AGAIN RN ON FLOOR WILL CALL BACK FOR REPORT WHEN AVAILABLE
[2021-04-24] MEDS: dilTIAZem HCL 125 MG in 0.9 % Sodium Chloride 100 ML IVCONT (04:45)
[2021-04-24 07:17] LABS: Glucose, Whole Blood 151 mg/dL (60-115)
--- NOTE | 2021-04-24 08:20 | P.PNIM_ITS ---
Subjective Subjective Date of Service: 04/24/21 Interval History: afib , toxic metabolic encephalopathy Review of Systems intermittent awake does not answer any questions but seems comfortable otherwise Physical Exam Vital Signs: Vital Signs: Last Vital Signs Temp 98.1 F 04/24/21 07:28 Pulse 76 04/24/21 07:28 Resp 19 04/24/21 07:28 BP 136/85 04/24/21 07:28 Pulse Ox 93 04/24/21 07:28 BMI result Body Mass Index 25.2 Appearance: ? Awake, confused, not in distress? cvs:? irregular rhythm- tachycardia seems improving, [id number] , no murmur res: clear to auscultation ,no rhonchii or wheezing abd: no rebound or guarding ,nt, bs present. ext pulses present , no cyanosis . neuro: nonfocal. Objective Data Active Medications Acetaminophen (Acetaminophen Supp 650 Mg Supp.Rect) 650 mg [place] Q6H PRN PRN Reason: Pain, Mild (Pain Scale 1-3) Apixaban (Apixaban 5 Mg Tablet) 5 mg PO BID [facility] Last Admin: 04/23/21 21:16 Dose: Not Given Documented by: ZAHRAA Non-Admin Reason: PATIENT SPITTING OUT MEDICATION Bisacodyl (Bisacodyl 10 Mg Supp.Rect) 10 mg [place] DAILY PRN PRN Reason: Constipation Cholestyramine Resin (Cholestyramine (With Sugar) 4 Gm Powd.Pack) 4 gm PO BID [facility] Last Admin: 04/23/21 21:16 Dose: Not Given Documented by: ZAHRAA Non-Admin Reason: PATIENT SPITTING OUT MEDICATION Dexamethasone Sodium Phosphate (Dexamethasone Sod Phosphate 4 Mg/Ml Vial) 6 mg IVPUSH DAILY [facility] Last Admin: 04/23/21 08:42 Dose: 6 mg Documented by: MEHDI Dextrose (Dextrose 50 % 25 Gm/50 Ml Vial) 25 gm IVPUSH Q15M PRN; Protocol PRN Reason: per Hypoglycemia Standing Ord. Furosemide (Furosemide 40 Mg/4 Ml Vial) 40 mg IVPUSH DAILY [facility]; Protocol Last Admin: 04/23/21 08:44 Dose: 40 mg Documented by: MEHDI Glucose (Glucose Gel 15 Gm Gel..Gram.) 15 gm PO Q15M PRN; Protocol PRN Reason: per Hypoglycemia Standing Ord. Ceftriaxone Sodium 1 gm/ (Sodium Chloride) 50 mls @ 100 mls/hr IV Q24H [facility] Last Infusion: 04/23/21 23:45 Dose: 0 mls/hr Documented by: ZAHRAA Diltiazem HCl 125 mg/ Sodium (Chloride) 125 mls @ 0 mls/hr IVCONT .Q0M [facility]; Protocol Last Admin: 04/24/21 04:45 Dose: 5 mg/hr, 5 mls/hr Documented by: ANGELA Vancomycin HCl 750 mg/ Sodium (Chloride) 265 mls @ 265 mls/hr IV Q24H [facility] Insulin Human Lispro (Insulin Lispro 100 Unit/Ml 3 Ml Vial) 0 unit SUBCUT QIDACHS [facility]; Protocol Last Admin: 04/23/21 21:28 Dose: Not Given Documented by: ZAHRAA Non-Admin Reason: No Insulin Coverage Loperamide HCl (Loperamide Hcl 2 Mg Capsule) 2 mg PO QID PRN PRN Reason: Diarrhea Metoprolol Tartrate (Metoprolol Tartrate 5 Mg/5 Ml Vial) 2.5 mg IVPUSH Q6H PRN PRN Reason: HR >120 Last Admin: 04/23/21 01:59 Dose: 2.5 mg Documented by: KITA Metoprolol Tartrate (Metoprolol Tartrate 50 Mg Tablet) 50 mg PO BID [facility]; Protocol Last Admin: 04/23/21 21:15 Dose: Not Given Documented by: ZAHRAA Non-Admin Reason: See Note Comments: HEART RATE IS 56, HOLD PER PROTOCOL Multivitamins/Vitamin C (Multivitamin Tablet) 1 tab PO DAILY [facility] Last Admin: 04/23/21 09:47 Dose: Not Given Documented by: MEHDI Non-Admin Reason: Patient Refused Ondansetron HCl (Ondansetron Hcl 4 Mg/2 Ml Vial) 4 mg IVPUSH Q8H PRN PRN Reason: Nausea and Vomiting Pharmacy Consult (Consult Rx Vancomycin Dosing) 1 each MISCELLANE DAILY PRN PRN Reason: Consult order Sodium Chloride (0.9 % Sodium Chloride Flush 3 Ml Syringe) 3 ml IVFLUSH QSHIFT [facility] Last Admin: 04/23/21 23:11 Dose: Not Given Documented by: ZAHRAA Non-Admin Reason: Med Not Available Labs CBC & Chem 7: 04/23/21 06:30 04/24/21 10:08 Labs: Laboratory Results - last 24 hr 04/23/21 04/23/21 04/23/21 12:17 17:05 21:03 POC Glucose 137 H 159 H 144 H 04/24/21 07:13 POC Glucose 151 H Microbiology Microbiology Results: Microbiology 04/22/21 17:15 Blood Culture - Preliminary Blood - Venous Prelim: GPC Gram Stain only 04/22/21 17:27 Blood Culture - Preliminary Blood - Venous No growth after 24 hours. 04/22/21 22:13 Urine Culture - Preliminary Urine Catheterized - Correia Catheter Culture too young to evaluate. Assessment and Plan (1) Atrial fibrillation with RVR: Status: Acute (2) UTI (urinary tract infection): Status: Acute (3) Encephalopathy: Status: Acute (4) FTT (failure to thrive) in adult: Status: Acute Assessment and Plan: 80-year-old female with? past medical history of diabetes as well as AFib who presents to the hospital with altered mental status from [facility]. 1.toxic metabolic ? Encephalopathy-? most likely? multifactorial in the setting of hypoxia, COVID-19 infection as well as UTI, metabolic acidosis , chf, afib rvr, hypernatremia , also FTT: continue? UTI with IV antibiotics, oxygen, as well as dexamethasone for COVID- 19, continue iv antibiotcs , gentle hydration d5ns , diltaizem drip for afib d/w son decided for comfort , no labs , also added comfort meds Quality Stroke Does the patient have a stroke diagnosis?: No VTE Prior VTE?: No VTE Risk Level:: Medical - moderate - high VTE Device Contraindication: Treatment Not Indicated VTE Drug Contraindication: N/A - Med Ordered
--- NOTE | 2021-04-24 08:30 | CA_ITS ---
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 The visually estimated ejection fraction is between 55-60%. - The left atrium is severely dilated. - There is moderate posterior mitral annular calcification. - There is mild calcification of the aortic valve. Findings Left Ventricle Normal left ventricular cavity size. There is mildly increased left ventricular wall thickness. The left ventricular systolic function is normal. The visually estimated ejection fraction is between 55-60%. There is no evidence of regional wall motion abnormalities. Diastolic function is indeterminate on the basis of available data. Right Ventricle Normal right ventricular cavity size and systolic function. Atria The left atrium is severely dilated. The right atrium is normal in size. Aortic Valve There is a normal trileaflet aortic valve. There is mild calcification of the aortic valve. There is no aortic valve stenosis. There is no aortic valve regurgitation. Mitral Valve There is moderate posterior mitral annular calcification. There is mild mitral valve regurgitation. There is no mitral valve stenosis. Pulmonic Valve The pulmonic valve was not well visualized. Tricuspid Valve Normal tricuspid valve structure. There is trace tricuspid valve regurgitation. The pulmonary artery systolic pressure is normal. Great Vessels The aortic annulus, sinuses of valsalva, and asc aorta are normal in size. Venous The inferior vena cava was not well visualized. Pericardium/Pleural There is no evidence of pericardial effusion. Prior Study Comparison No prior study available for comparison. Recommendations, Care & Conclusions No obvious valvular pathology seen on this study. Measurements 2D Linear Measurements IVSd: 1.03 0.6-0.9/0.6-1.0 cm LVIDd: 3.80 3.9-5.3/4.2-5.9 cm LVIDd Index: 2.28 2.4-3.2/2.2-3.1 cm/m2 LVIDs: 2.63 2.0-3.6 cm LVPWd: 1.07 0.7-1.1 cm Ao Root: 3.00 2.1-3.5 cm LA Diam: 4.20 2.7-3.8/3.0-4.0 cm LAIDs Index: 2.51 1.5-2.3 cm/m2 LV Mass: 156.53 67-162/88-224 g LV Mass Index: 93.73 43-95/49-115 g/m2 LVOT Diam: 1.90 3.0+(-)1.3 cm 2D Systolic Function EF 4C: 41.50 >55% EF 2C: 63.70 >55% Mitral Valve MV VTI: 0.23 MV Pk Misha: 1.00 MV Mn Misha: 0.55 MV Pk Grad: 4.00 MV Mn Grad: 1.00 MV Pk E: 0.87 MV Decel Time: 174.00 E'Lateral: 10.70 E'Medial: 8.16 E/E' Med: 10.70 E/E' Lat: 8.10 PHT: 51.00 MVA PHT: 4.31 MVA Continuity: 1.66 Decel Braxton: 4.99 Aortic Valve AoV Pk Misha: 1.25 AoV Mn Misha: 0.79 AoV VTI: 0.19 AoV Pk Grad: 6.00 Aov Mn Grad: 3.00 AIMEE Cont.VTI: 2.01 LVOT LVOT Pk Misha: 0.65 LVOT Mn Misha: 0.43 LVOT VTI: 0.14 LVOT Pk Grad: 2.00 LVOT Mn Grad: 1.00 LVOT Diam: 1.90 LVOT Area: 2.84 Diastolic Function MV Pk E: 0.87 E'Medial: 8.16 E/E' Med: 10.70 E' Laterial: 10.70 E/E' Lat: 8.10 Right Ventricle TVS' Misha: 9.00 Tricuspid Valve TR Pk Misha: 1.80 TR Pk Grad: 13.00 Great Vessels Aorta Ao Root-2D: 3.00 2.0-3.7 cm Ao Asc: 3.40 2.1-3.4 cm Pulmonary Valve PV Pk Misha: 0.67 Peak PV Grad: 2.00 Updated in Other Vendor System with Status of Final Edson Padilla MD electronically signed on 04/24/2021 5:15:39 PM with status of Final
[2021-04-24] MEDS: Furosemide 40 MG/4 ML VIAL IVPUSH (09:09)
[2021-04-24] MEDS: dexAMETHasone sod phosphate 4 MG/ML VIAL 6 MG IVPUSH (09:09)
--- NOTE | 2021-04-24 09:31 | PM.CNPUL ---
History of Present Illness History of Present Illness Consult date: 04/24/21 Chief complaint: Covid Hypoxia, Afib with rvr, UTI Narrative: This is an inpatient pulmonary consultation. The patient is a 80-year-old female with? history of AFib, diabetes who sent [facility] the hospital [facility] with altered mental status.? Patient? had tested positive for COVID-19 on 04/13/2021 and has been at the COVID unit at the [facility] since then but has developed altered mental status over the past few days and therefore sent to the ED for further evaluation.? History is obtained mostly from ED PA as patient is very altered and unable to give her own history. On arrival to the ED patient was found to have heart rate of 154 in AFib with RVR, respiratory rate of 22, blood pressure 156/80, satting 99% on non-rebreather. Her for ABG was abnormal with 7.20 bicarb of 13, BUN of 44, creatinine of 1.24, BNP of 347, and a UA that is positive for leukocyte Estrace and WBC.? COVID-19 positive. Chest x-ray shows increased bilateral per her all linear markings in suggestive of PNA vs edema. The patient has had serial ABGs still with evidence of metabolic acidosis. Her lactic acid was within normal limits. Her blood sugars have been elevated. Need to consider diabetic ketoacidosis among other ionic acids that buildup and resultanting in an anion gap metabolic acidosis. The patient continues to be unresponsive. Is hard to know what her baseline is. Review of Systems Review of Systems: Yes Unobtainable due to mental condition and Unobtainable due to mental status Neurologic: Reports confusion Psychiatric: Psychiatric: Reports confusion PMF Past Medical History Medical History (Updated 04/24/21 @ 09:37 by Thiago Yun MD) Atrial fibrillation Diabetes High anion gap metabolic acidosis Social History Social History service: No Current occupational status: retired Meds Allergies Allergy/AdvReac Type Severity Reaction Status Date / Time No Known Allergies Allergy Verified 04/22/21 16:39 Active Medications: Current Medications Acetaminophen (Acetaminophen Supp 650 Mg Supp.Rect) 650 mg [place] Q6H PRN PRN Reason: Pain, Mild (Pain Scale 1-3) Apixaban (Apixaban 5 Mg Tablet) 5 mg PO BID [facility] Last Admin: 04/24/21 08:39 Dose: Not Given Documented by: Bisacodyl (Bisacodyl 10 Mg Supp.Rect) 10 mg [place] DAILY PRN PRN Reason: Constipation Cholestyramine Resin (Cholestyramine (With Sugar) 4 Gm Powd.Pack) 4 gm PO BID [facility] Last Admin: 04/24/21 08:39 Dose: Not Given Documented by: Dexamethasone Sodium Phosphate (Dexamethasone Sod Phosphate 4 Mg/Ml Vial) 6 mg IVPUSH DAILY [facility] Last Admin: 04/24/21 09:09 Dose: 6 mg Documented by: Dextrose (Dextrose 50 % 25 Gm/50 Ml Vial) 25 gm IVPUSH Q15M PRN; Protocol PRN Reason: per Hypoglycemia Standing Ord. Furosemide (Furosemide 40 Mg/4 Ml Vial) 40 mg IVPUSH DAILY [facility]; Protocol Last Admin: 04/24/21 09:09 Dose: 40 mg Documented by: Glucose (Glucose Gel 15 Gm Gel..Gram.) 15 gm PO Q15M PRN; Protocol PRN Reason: per Hypoglycemia Standing Ord. Ceftriaxone Sodium 1 gm/ (Sodium Chloride) 50 mls @ 100 mls/hr IV Q24H [facility] Last Infusion: 04/23/21 23:45 Dose: Infused Documented by: Diltiazem HCl 125 mg/ Sodium (Chloride) 125 mls @ 0 mls/hr IVCONT .Q0M [facility]; Protocol Last Admin: 04/24/21 04:45 Dose: 5 mg/hr, 5 mls/hr Documented by: Vancomycin HCl 750 mg/ Sodium (Chloride) 265 mls @ 265 mls/hr IV Q24H [facility] Insulin Human Lispro (Insulin Lispro 100 Unit/Ml 3 Ml Vial) 0 unit SUBCUT QIDACHS [facility]; Protocol Last Admin: 04/24/21 08:34 Dose: Not Given Documented by: Loperamide HCl (Loperamide Hcl 2 Mg Capsule) 2 mg PO QID PRN PRN Reason: Diarrhea Metoprolol Tartrate (Metoprolol Tartrate 5 Mg/5 Ml Vial) 2.5 mg IVPUSH Q6H PRN PRN Reason: HR >120 Last Admin: 04/23/21 01:59 Dose: 2.5 mg Documented by: Metoprolol Tartrate (Metoprolol Tartrate 50 Mg Tablet) 50 mg PO BID [facility]; Protocol Last Admin: 04/24/21 08:39 Dose: Not Given Documented by: Multivitamins/Vitamin C (Multivitamin Tablet) 1 tab PO DAILY [facility] Last Admin: 04/24/21 08:39 Dose: Not Given Documented by: Ondansetron HCl (Ondansetron Hcl 4 Mg/2 Ml Vial) 4 mg IVPUSH Q8H PRN PRN Reason: Nausea and Vomiting Pharmacy Consult (Consult Rx Vancomycin Dosing) 1 each MISCELLANE DAILY PRN PRN Reason: Consult order Sodium Chloride (0.9 % Sodium Chloride Flush 3 Ml Syringe) 3 ml IVFLUSH QSHIFT [facility] Last Admin: 04/24/21 08:39 Dose: Not Given Documented by: Home Medications Medication Instructions Recorded Confirmed Last Taken Type acetaminophen 325 mg tablet 650 mg PO Q4H PRN 04/22/21 04/22/21 Unknown History apixaban 5 mg tablet (Eliquis) 1 tab PO BID 04/22/21 04/22/21 04/22/21 History bisacodyl 10 mg rectal suppository 10 mg [place] DAILY PRN 04/22/21 04/22/21 Unknown History cholestyramine (with sugar) 4 gram 1 packet PO BID 04/22/21 04/22/21 04/22/21 History powder for susp in a packet loperamide 2 mg tablet 2 mg PO QID PRN 04/22/21 04/22/21 Unknown History metformin 1,000 mg tablet 1 tab PO DAILY 04/22/21 04/22/21 04/22/21 History metformin 500 mg tablet 1 tab PO BEDTIME 04/22/21 04/22/21 04/21/21 History metoprolol tartrate 25 mg tablet 1 tab PO BID 04/22/21 04/22/21 04/22/21 History multivitamin 1 tab PO DAILY 04/22/21 04/22/21 04/22/21 History Physical Exam Vital Signs: Vital Signs: Last Vital Signs Temp 98.1 F 04/24/21 07:28 Pulse 135 H 04/24/21 09:21 Resp 19 04/24/21 07:28 BP 136/85 04/24/21 07:28 Pulse Ox 95 04/24/21 09:21 BMI result Body Mass Index 25.2 Const: General: awake and confusion Orientation/consciousness: confusion and Other orientation findings (somnolent) Neck: Neck: Yes normal visual inspection, Yes full ROM and Yes no lymphadenopathy Chest: Chest palpation & inspection: normal inspection of the chest Resp: Auscultation: diminished lung sounds Cardio: Rate: tachycardic Rhythm: abnormal rhythm Heart sounds: S1 normal heart sound present and S2 normal heart sound present GI: Palpation (GI): Soft to palpation and nontender Auscultation: normal bowel sounds Skin: General skin exam: rashes and/or lesions noted Neuro: General: confusion Results Laboratory Findings CBC and BMP: 04/23/21 06:30 04/23/21 06:30 ABG, PT/INR, D-dimer: PT/INR, D-dimer PT 18.5 SEC (9.9-13.0) H 04/22/21 17:27 INR 1.6 (0.9-1.1) H 04/22/21 17:27 Abnormal lab findings: Abnormal Labs 04/22/21 04/22/21 04/22/21 17:15 17:27 17:27 WBC MCH 26.8 L MPV 9.1 L Immature Gran % (Auto) 1.3 H Neut % (Auto) 84.5 H Lymph % (Auto) 8.1 L Lymph # (Auto) 0.6 L Abs Immat Gran (auto) 0.09 H PT 18.5 H INR 1.6 H VBG pH VBG HCO3 Chloride Carbon Dioxide BUN POC Glucose Random Glucose B-Natriuretic Peptide Albumin Urine Protein Urine Blood Ur Leukocyte Esterase Urine RBC Urine WBC COVID-19 (MELINDA) Positive A 04/22/21 04/22/21 04/22/21 17:32 18:57 21:40 WBC MCH MPV Immature Gran % (Auto) Neut % (Auto) Lymph % (Auto) Lymph # (Auto) Abs Immat Gran (auto) PT INR VBG pH 7.20 L* VBG HCO3 11 L Chloride 115 H 116 H Carbon Dioxide 13 L 12 L BUN 46 H 44 H POC Glucose Random Glucose 139 H 141 H B-Natriuretic Peptide Albumin 3.4 L Urine Protein Urine Blood Ur Leukocyte Esterase Urine RBC Urine WBC COVID-19 (MELINDA) 04/22/21 04/22/21 04/22/21 21:40 21:42 22:05 WBC MCH MPV Immature Gran % (Auto) Neut % (Auto) Lymph % (Auto) Lymph # (Auto) Abs Immat Gran (auto) PT INR VBG pH 7.27 L VBG HCO3 12 L Chloride Carbon Dioxide BUN POC Glucose Random Glucose B-Natriuretic Peptide 347 H Albumin Urine Protein 2+ H Urine Blood 3+ H Ur Leukocyte Esterase 3+ H Urine RBC 15-29 H Urine WBC TNTC H COVID-19 (MELINDA) 04/23/21 04/23/21 04/23/21 06:30 06:30 06:30 WBC 4.6 L MCH 26.5 L MPV Immature Gran % (Auto) 2.0 H Neut % (Auto) 81.6 H Lymph % (Auto) 10.1 L Lymph # (Auto) 0.5 L Abs Immat Gran (auto) 0.09 H PT INR VBG pH 7.24 L VBG HCO3 10 L Chloride 115 H Carbon Dioxide 12 L BUN 48 H POC Glucose Random Glucose 242 H B-Natriuretic Peptide Albumin Urine Protein Urine Blood Ur Leukocyte Esterase Urine RBC Urine WBC COVID-19 (MELINDA) 04/23/21 04/23/21 04/23/21 07:25 12:17 17:05 WBC MCH MPV Immature Gran % (Auto) Neut % (Auto) Lymph % (Auto) Lymph # (Auto) Abs Immat Gran (auto) PT INR VBG pH VBG HCO3 Chloride Carbon Dioxide BUN POC Glucose 192 H 137 H 159 H Random Glucose B-Natriuretic Peptide Albumin Urine Protein Urine Blood Ur Leukocyte Esterase Urine RBC Urine WBC COVID-19 (MELINDA) 04/23/21 04/24/21 21:03 07:13 WBC MCH MPV Immature Gran % (Auto) Neut % (Auto) Lymph % (Auto) Lymph # (Auto) Abs Immat Gran (auto) PT INR VBG pH VBG HCO3 Chloride Carbon Dioxide BUN POC Glucose 144 H 151 H Random Glucose B-Natriuretic Peptide Albumin Urine Protein Urine Blood Ur Leukocyte Esterase Urine RBC Urine WBC COVID-19 (MELINDA) Microbiology: Microbiology 04/22/21 17:15 Blood - Venous Blood Culture - Preliminary Prelim: GPC Gram Stain only 04/22/21 17:27 Blood - Venous Blood Culture - Preliminary No growth after 24 hours. 04/22/21 22:13 Urine Catheterized - Correia Catheter Urine Culture - Preliminary Culture too young to evaluate. Assessment and Plan (1) Acute respiratory failure with hypoxia: Status: Acute (2) Encephalopathy: Status: Acute (3) High anion gap metabolic acidosis: Status: Acute Continue oxygen supplementation Rate control repeat for Bloodwork: BMP, lactic acid, ketones, salycylates repeat CXR continue anticoagulation Procedures Date of Service Date of Service: 04/24/21
--- NOTE | 2021-04-24 10:06 | P.PNCA_ITS ---
Subjective Subjective Date of Service: 04/24/21 Interval history: Patient not able to give any information whatsoever. Review of Systems Review of Systems Unable to obtain. Due to mental status. Physical Exam Vital Signs: Last Vital Signs Temp 98.1 F 04/24/21 07:28 Pulse 135 H 04/24/21 09:21 Resp 19 04/24/21 07:28 BP 136/85 04/24/21 07:28 Pulse Ox 95 04/24/21 09:21 BMI result Body Mass Index 25.2 Const General: no acute distress HENMT Other: Unremarkable Neck Neck: Yes normal visual inspection Chest Chest palpation & inspection: normal inspection of the chest Resp Auscultation: no crackles and no wheezes Cardio Palpation: normal PMI Heart sounds: S1 normal heart sound present, S2 normal heart sound present, no gallops, no murmurs and no rubs GI Palpation (GI): Soft to palpation Back/Spine/Pelvis Other: unremarkable Skin Lesions: other Neuro Cranial nerves: Yes Other cranial nerve findings present Extrem General: Yes other Psych Mental Status: other Objective Labs and Meds Result diagrams: 04/23/21 06:30 04/23/21 06:30 Lab results: Laboratory Results - last 24 hr 04/23/21 04/23/21 04/23/21 12:17 17:05 21:03 POC Glucose 137 H 159 H 144 H 04/24/21 07:13 POC Glucose 151 H Progress Note: A&P Assessment and plan (1) Atrial fibrillation with RVR: Status: Acute (2) 2019 novel coronavirus-infected pneumonia (NCIP): Status: Acute (3) Encephalopathy: Status: Acute Assessment and Plan: High sensitivity troponins are within acceptable range. Cardiac BNP is 347. Atrial fibrillation is probably old as she is on home Eliquis. Also on home metoprolol 25 mg b.i.d.. However not clear if she actually has paroxysmal or persistent atrial fibrillation. Discussed with RN and patient is not able to take anything PO. Hence, may continue Diltiazem drip. When able resume home beta blockers PO and then titrate dose accordingly. Anticoagulation. If mental status does not improve, then need to discuss goals of care. Fall Risk Details Current Medications: Current Medications Acetaminophen (Acetaminophen Supp 650 Mg Supp.Rect) 650 mg [place] Q6H PRN PRN Reason: Pain, Mild (Pain Scale 1-3) Apixaban (Apixaban 5 Mg Tablet) 5 mg PO BID [facility] Last Admin: 04/24/21 08:39 Dose: Not Given Documented by: Bisacodyl (Bisacodyl 10 Mg Supp.Rect) 10 mg MD DAILY PRN PRN Reason: Constipation Cholestyramine Resin (Cholestyramine (With Sugar) 4 Gm Powd.Pack) 4 gm PO BID [facility] Last Admin: 04/24/21 08:39 Dose: Not Given Documented by: Dexamethasone Sodium Phosphate (Dexamethasone Sod Phosphate 4 Mg/Ml Vial) 6 mg IVPUSH DAILY [facility] Last Admin: 04/24/21 09:09 Dose: 6 mg Documented by: Dextrose (Dextrose 50 % 25 Gm/50 Ml Vial) 25 gm IVPUSH Q15M PRN; Protocol PRN Reason: per Hypoglycemia Standing Ord. Furosemide (Furosemide 40 Mg/4 Ml Vial) 40 mg IVPUSH DAILY [facility]; Protocol Last Admin: 04/24/21 09:09 Dose: 40 mg Documented by: Glucose (Glucose Gel 15 Gm Gel..Gram.) 15 gm PO Q15M PRN; Protocol PRN Reason: per Hypoglycemia Standing Ord. Ceftriaxone Sodium 1 gm/ (Sodium Chloride) 50 mls @ 100 mls/hr IV Q24H [facility] Last Infusion: 04/23/21 23:45 Dose: Infused Documented by: Diltiazem HCl 125 mg/ Sodium (Chloride) 125 mls @ 0 mls/hr IVCONT .Q0M [facility]; Protocol Last Admin: 04/24/21 04:45 Dose: 5 mg/hr, 5 mls/hr Documented by: Vancomycin HCl 750 mg/ Sodium (Chloride) 265 mls @ 265 mls/hr IV Q24H [facility] Insulin Human Lispro (Insulin Lispro 100 Unit/Ml 3 Ml Vial) 0 unit SUBCUT QIDACHS [facility]; Protocol Last Admin: 04/24/21 08:34 Dose: Not Given Documented by: Loperamide HCl (Loperamide Hcl 2 Mg Capsule) 2 mg PO QID PRN PRN Reason: Diarrhea Metoprolol Tartrate (Metoprolol Tartrate 5 Mg/5 Ml Vial) 2.5 mg IVPUSH Q6H PRN PRN Reason: HR >120 Last Admin: 04/23/21 01:59 Dose: 2.5 mg Documented by: Metoprolol Tartrate (Metoprolol Tartrate 50 Mg Tablet) 50 mg PO BID [facility]; Protocol Last Admin: 04/24/21 08:39 Dose: Not Given Documented by: Multivitamins/Vitamin C (Multivitamin Tablet) 1 tab PO DAILY [facility] Last Admin: 04/24/21 08:39 Dose: Not Given Documented by: Ondansetron HCl (Ondansetron Hcl 4 Mg/2 Ml Vial) 4 mg IVPUSH Q8H PRN PRN Reason: Nausea and Vomiting Pharmacy Consult (Consult Rx Vancomycin Dosing) 1 each MISCELLANE DAILY PRN PRN Reason: Consult order Sodium Chloride (0.9 % Sodium Chloride Flush 3 Ml Syringe) 3 ml IVFLUSH QSHIFT [facility] Last Admin: 04/24/21 08:39 Dose: Not Given Documented by: Time Spent With Patient Time: Total time spent is greater than 50% in coordination of care (as documented) at patient's floor/unit and/or counseling patient: Time with patient: less than 15 minutes Progress Note: Quality Stroke Does the patient have a stroke diagnosis?: No Procedures Date of Service Date of Service: 04/24/21
[2021-04-24 10:54] LABS: Lactic Acid 1.3 mmol/L (0.5-2.0)
[2021-04-24 10:56] LABS: Glucose, Whole Blood 160 mg/dL (60-115)
[2021-04-24 10:59] LABS: Anion Gap 19 (12-20); Blood Urea Nitrogen 53 mg/dL (9-16); Calcium 10.2 mg/dL (8.4-10.2); Carbon Dioxide 15 mmol/L (22-29); Chloride 118 mmol/L (96-108); Creatinine Clr Calc Pharmacy 28.6; Estimated Glomerular Filt Rate 36; Glucose Random 189 mg/dL (60-115); Potassium 4.7 mmol/L (3.3-5.1); Salicylate < 5.0 mg/dL (15-30); Sodium 147 mmol/L (135-145)
[2021-04-24 12:09] LABS: Acetone, serum QL Negative (Negative)
--- NOTE | 2021-04-24 13:07 | MHC.CLN ---
RE: CONSULT PT WITH INCREASED NUTRITION RISK R/T PRESSURE INJURIES DIET RX: 1800DM-APPROPRIATE RECOMMEND ADDING GLUCERNA BID TO INCREASE KCALS AND PROMOTE WOUND HEALING SUPP TO PROVIDE [id number], 20G PROTEIN MONITOR PO INTAKE SEE ALSO CLINICAL NUTRITION ASSESSMENT
--- NOTE | 2021-04-24 13:16 | MHC.CM.PN ---
per rounds pt from [facility] where she will return when d d
--- NOTE | 2021-04-24 13:38 | MHC.SLORD ---
Speech Language Pathology Order Status: Order received for bedside dysphagia evaluation on 04/23/21. CORPORATE COMMUNICATIONS MANAGER attempted to see patient this morning for PO trials. Patient was sleeping and did not wake to sternal rub and change in position. Notified MD & RN by [place] message. Please notify CORPORATE COMMUNICATIONS MANAGER if patient is appropriate for PO trials (able to remain awake for at least 15 minutes). Otherwise, plan for CORPORATE COMMUNICATIONS MANAGER eval tomorrow morning.
[2021-04-24] MEDS: Dextrose 5 % and 0.45 % NaCl 1,000 ML 80 ML IVCONT (16:35)
[2021-04-24 16:40] LABS: Glucose, Whole Blood 176 mg/dL (60-115)
[2021-04-24] MEDS: vancomycin HCL 750 MG in 0.9 % Sodium Chloride 250 ML 265 MG IV (21:03)
[2021-04-24] MEDS: cefTRIAXone sodium 1 GM in 0.9 % Sodium Chloride 50 ML IV (21:04)
[2021-04-24] MEDS: 0.9 % Sodium Chloride Flush 3 ML SYRINGE IVFLUSH (21:05)
[2021-04-24 22:08] LABS: Glucose, Whole Blood 224 mg/dL (60-115)
[2021-04-25] VITALS: PULSE 90; RESP 17
[2021-04-25] MEDS: Dextrose 5 % and 0.45 % NaCl 1,000 ML 80 ML IVCONT (05:01)
[2021-04-25 08:00] VITALS: RESP 23
--- NOTE | 2021-04-25 09:13 | P.PNIM_ITS ---
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 nonverbal, not in distress? cvs:? irregular rythem, [id number]. res: clear to auscultation ,no rhonchii or wheezing abd: soft,bs present. ext pulses present , no cyanosis . neuro:? nonfocal Objective Data Active Medications Acetaminophen (Acetaminophen Supp 650 Mg Supp.Rect) 650 mg [place] Q6H PRN PRN Reason: Pain, Mild (Pain Scale 1-3) Apixaban (Apixaban 5 Mg Tablet) 5 mg PO BID [facility] Last Admin: 04/24/21 20:56 Dose: Not Given Documented by: MAAME Non-Admin Reason: NPO Bisacodyl (Bisacodyl 10 Mg Supp.Rect) 10 mg VA DAILY PRN PRN Reason: Constipation Cholestyramine Resin (Cholestyramine (With Sugar) 4 Gm Powd.Pack) 4 gm PO BID [facility] Last Admin: 04/24/21 20:56 Dose: Not Given Documented by: MAAME Non-Admin Reason: NPO Dexamethasone Sodium Phosphate (Dexamethasone Sod Phosphate 4 Mg/Ml Vial) 6 mg IVPUSH DAILY [facility] Last Admin: 04/24/21 09:09 Dose: 6 mg Documented by: ANGELA Dextrose (Dextrose 50 % 25 Gm/50 Ml Vial) 25 gm IVPUSH Q15M PRN; Protocol PRN Reason: per Hypoglycemia Standing Ord. Glucose (Glucose Gel 15 Gm Gel..Gram.) 15 gm PO Q15M PRN; Protocol PRN Reason: per Hypoglycemia Standing Ord. Ceftriaxone Sodium 1 gm/ (Sodium Chloride) 50 mls @ 100 mls/hr IV Q24H [facility] Last Infusion: 04/24/21 21:41 Dose: 0 mls/hr Documented by: MAAME Vancomycin HCl 750 mg/ Sodium (Chloride) 265 mls @ 265 mls/hr IV Q24H [facility] Last Infusion: 04/24/21 22:08 Dose: 0 mls/hr Documented by: MAAME Dextrose/Sodium Chloride (D51/2ns) 1,000 mls @ 80 mls/hr IVCONT .[id number] [facility] Last Admin: 04/25/21 05:01 Dose: 80 mls/hr Documented by: MAAME Insulin Human Lispro (Insulin Lispro 100 Unit/Ml 3 Ml Vial) 0 unit SUBCUT QIDACHS [facility]; Protocol Last Admin: 04/24/21 22:05 Dose: Not Given Documented by: MAAME Non-Admin Reason: NPO Loperamide HCl (Loperamide Hcl 2 Mg Capsule) 2 mg PO QID PRN PRN Reason: Diarrhea Lorazepam (Lorazepam 0.5 Mg Tablet) 0.5 mg SUBLINGUAL Q4H PRN PRN Reason: anxiety/restlessness Metoprolol Tartrate (Metoprolol Tartrate 5 Mg/5 Ml Vial) 2.5 mg IVPUSH Q6H PRN PRN Reason: HR >120 Last Admin: 04/23/21 01:59 Dose: 2.5 mg Documented by: KITA Metoprolol Tartrate (Metoprolol Tartrate 50 Mg Tablet) 50 mg PO BID [facility]; Protocol Last Admin: 04/24/21 08:39 Dose: Not Given Documented by: ANGELA Non-Admin Reason: NPO Morphine Sulfate (Morphine Sulfate 2 Mg/Ml Cartridge) 2 mg IVPUSH Q6H PRN PRN Reason: Discomfort/Shortness of breath Multivitamins/Vitamin C (Multivitamin Tablet) 1 tab PO DAILY [facility] Last Admin: 04/24/21 08:39 Dose: Not Given Documented by: ANGELA Non-Admin Reason: NPO Ondansetron HCl (Ondansetron Hcl 4 Mg/2 Ml Vial) 4 mg IVPUSH Q8H PRN PRN Reason: Nausea and Vomiting Pharmacy Consult (Consult Rx Vancomycin Dosing) 1 each MISCELLANE DAILY PRN PRN Reason: Consult order Sodium Chloride (0.9 % Sodium Chloride Flush 3 Ml Syringe) 3 ml IVFLUSH QSHIFT [facility] Last Admin: 04/24/21 21:05 Dose: 3 ml Documented by: MAAME Labs CBC & Chem 7: 04/23/21 06:30 04/24/21 10:08 Labs: Laboratory Results - last 24 hr 04/24/21 04/24/21 04/24/21 10:08 10:08 10:52 Anion Gap 19 Estim Creat Clear Calc 28.6 Estimated GFR 36 POC Glucose 160 H Random Glucose 189 H Lactic Acid 1.3 Calcium 10.2 D Salicylates < 5.0 L Acetone, Qual Negative 04/24/21 04/24/21 16:37 22:04 Anion Gap Estim Creat Clear Calc Estimated GFR POC Glucose 176 H 224 H Random Glucose Lactic Acid Calcium Salicylates Acetone, Qual Microbiology Microbiology Results: Microbiology 04/24/21 00:17 Blood Culture - Preliminary Blood - Venous No growth after 24 hours. 04/24/21 00:22 Blood Culture - Preliminary Blood - Venous No growth after 24 hours. 04/22/21 17:27 Blood Culture - Preliminary Blood - Venous No growth after 48 hours. 04/22/21 22:13 Urine Culture - Preliminary Urine Catheterized - Correia Catheter Gram negative wiley 04/22/21 17:15 Blood Culture - Final Blood - Venous Coag negative Staphylococcus Assessment and Plan (1) FTT (failure to thrive) in adult: Status: Acute (2) UTI (urinary tract infection): Status: Acute (3) Encephalopathy: Status: Acute Assessment and Plan: 80-year-old female with? past medical history of diabetes as well as AFib who presents to the hospital with altered mental status from care home. 1.toxic metabolic ? Encephalopathy-? most likely? multifactorial in the setting of hypoxia, COVID-19 infection as well as UTI, metabolic acidosis , chf, afib rvr, hypernatremia , also FTT: continue? UTI with IV antibiotics, oxygen, as well as dexamethasone for COVID- 19, treated iv antibiotcs , gentle hydration d5ns , diltaizem drip for afib d/w son decided for? comfort , no labs , also added comfort meds. waiting for LTC /snf bed that can accomodate her positive covid status Quality Stroke Does the patient have a stroke diagnosis?: No VTE Prior VTE?: No VTE Risk Level:: Medical - moderate - high VTE Device Contraindication: Treatment Not Indicated VTE Drug Contraindication: N/A - Med Ordered
--- NOTE | 2021-04-25 10:28 | MHC.SLORD ---
Speech Language Pathology Order Status: Attempted to see PT for BSE this a.m. 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 Will contact MD to have order d/c'd.
--- NOTE | 2021-04-25 12:57 | MHC.CM.PN ---
CM spoke with Son/HCP/Manuel @ [phone] regarding dc planning, ? of Hospice and WELDING MACHINE FEEDER status. Manuel does not want Patient to return to [facility], where she was for LTC. 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 Manuel is agreeable to referrals being made to the area SNFs and CM will continue to follow.
[2021-04-25 16:00] VITALS: RESP 18; TEMP 35.7
[2021-04-25] MEDS: 0.9 % Sodium Chloride Flush 3 ML SYRINGE IVFLUSH (17:51)
[2021-04-26] VITALS: RESP 20
[2021-04-26] MEDS: 0.9 % Sodium Chloride Flush 3 ML SYRINGE IVFLUSH ×3 (00:57→14:55)
--- NOTE | 2021-04-26 07:44 | P.PNIM_ITS ---
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 nonverbal,comfortable. cvs:? irregular rythem, [id number]. res: clear to auscultation. abd: soft,bs present. ext pulses present , no cyanosis . Objective Data Active Medications Acetaminophen (Acetaminophen Supp 650 Mg Supp.Rect) 650 mg [place] Q6H PRN PRN Reason: Pain, Mild (Pain Scale 1-3) Dexamethasone Sodium Phosphate (Dexamethasone Sod Phosphate 4 Mg/Ml Vial) 6 mg IVPUSH DAILY [facility] Last Admin: 04/25/21 14:06 Dose: Not Given Documented by: ANGELA Non-Admin Reason: NPO Glucose (Glucose Gel 15 Gm Gel..Gram.) 15 gm PO Q15M PRN; Protocol PRN Reason: per Hypoglycemia Standing Ord. 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 Lorazepam (Lorazepam 0.5 Mg Tablet) 0.5 mg SUBLINGUAL Q4H PRN PRN Reason: anxiety/restlessness Morphine Sulfate (Morphine Sulfate 2 Mg/Ml Cartridge) 2 mg IVPUSH Q6H PRN PRN Reason: Discomfort/Shortness of breath Ondansetron HCl (Ondansetron Hcl 4 Mg/2 Ml Vial) 4 mg IVPUSH Q8H PRN PRN Reason: Nausea and Vomiting Pharmacy Consult (Consult Rx Vancomycin Dosing) 1 each MISCELLANE DAILY PRN PRN Reason: Consult order Sodium Chloride (0.9 % Sodium Chloride Flush 3 Ml Syringe) 3 ml IVFLUSH QSHIFT [facility] Last Admin: 04/26/21 00:57 Dose: 3 ml Documented by: DAYAMI Labs CBC & Chem 7: 04/23/21 06:30 04/24/21 10:08 Microbiology Microbiology Results: Microbiology 04/24/21 00:17 Blood Culture - Preliminary Blood - Venous No growth after 48 hours. 04/24/21 00:22 Blood Culture - Preliminary Blood - Venous No growth after 48 hours. 04/22/21 22:13 Urine Culture - Preliminary Urine Catheterized - Correia Catheter Gram negative wiley Assessment and Plan (1) FTT (failure to thrive) in adult: Status: Acute Assessment and Plan: 80-year-old female with? past medical history of diabetes as well as AFib who presents to the hospital with altered mental status from detention. 1.toxic metabolic ? Encephalopathy-? most likely? multifactorial in the setting of hypoxia, COVID-19 infection as well as UTI, metabolic acidosis , chf, afib rvr, hypernatremia , also FTT: continue? UTI with IV antibiotics, oxygen, as well as dexamethasone for COVID- 19, treated? iv antibiotcs , gentle hydration d5ns , diltaizem drip for afib-minmum improvement , d/w son decided for? comfort , no labs , also added comfort meds. waiting for LTC /snf? bed that can accomodate her positive covid status Quality Stroke Does the patient have a stroke diagnosis?: No VTE Prior VTE?: No VTE Risk Level:: Medical - moderate - high VTE Device Contraindication: Treatment Not Indicated VTE Drug Contraindication: N/A - Med Ordered
[2021-04-26 08:00] VITALS: BP 142/91; PULSE 105; RESP 12; TEMP 36.5; O2SAT 95
--- NOTE | 2021-04-26 12:02 | MHC.CM.PN ---
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 CM will follow. MD to speak with Son, per ROUNDS discussion.
--- NOTE | 2021-04-26 13:07 | MHC.CLN ---
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
[2021-04-26 14:53] VITALS: RESP 22
[2021-04-26] MEDS: Morphine Sulfate 2 MG/ML CARTRIDGE IVPUSH (14:53)
[2021-04-26 16:00] VITALS: RESP 20
[2021-04-26 23:44] VITALS: RESP 16
[2021-04-27] MEDS: 0.9 % Sodium Chloride Flush 3 ML SYRINGE IVFLUSH ×5 (00:29→23:45)
[2021-04-27] MEDS: Dextrose 5 % and 0.45 % NaCl 1,000 ML 80 ML IVCONT (06:21)
[2021-04-27] MEDS: dexAMETHasone sod phosphate 4 MG/ML VIAL 6 MG IVPUSH (07:53)
--- NOTE | 2021-04-27 08:21 | P.PNIM_ITS ---
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 nonverbal,comfortable. cvs:? irregular rythem, [id number]. res: clear to auscultation. abd: soft,bs present. ext pulses present , no cyanosis . Objective Data Active Medications Acetaminophen (Acetaminophen Supp 650 Mg Supp.Rect) 650 mg [place] Q6H PRN PRN Reason: Pain, Mild (Pain Scale 1-3) Dexamethasone Sodium Phosphate (Dexamethasone Sod Phosphate 4 Mg/Ml Vial) 6 mg IVPUSH DAILY [facility] Last Admin: 04/27/21 07:53 Dose: 6 mg Documented by: FAYE Glucose (Glucose Gel 15 Gm Gel..Gram.) 15 gm PO Q15M PRN; Protocol PRN Reason: per Hypoglycemia Standing Ord. 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 Dextrose/Sodium Chloride (D51/2ns) 1,000 mls @ 80 mls/hr IVCONT .[id number] [facility] Last Admin: 04/27/21 06:21 Dose: 80 mls/hr Documented by: LORENE Lorazepam (Lorazepam 0.5 Mg Tablet) 0.5 mg SUBLINGUAL Q4H PRN PRN Reason: anxiety/restlessness Morphine Sulfate (Morphine Sulfate 2 Mg/Ml Cartridge) 2 mg IVPUSH Q6H PRN PRN Reason: Discomfort/Shortness of breath Last Admin: 04/26/21 14:53 Dose: 2 mg Documented by: MIGUEL Ondansetron HCl (Ondansetron Hcl 4 Mg/2 Ml Vial) 4 mg IVPUSH Q8H PRN PRN Reason: Nausea and Vomiting Pharmacy Consult (Consult Rx Vancomycin Dosing) 1 each MISCELLANE DAILY PRN PRN Reason: Consult order Sodium Chloride (0.9 % Sodium Chloride Flush 3 Ml Syringe) 3 ml IVFLUSH QSHIFT [facility] Last Admin: 04/27/21 07:53 Dose: 3 ml Documented by: FAYE Labs CBC & Chem 7: 04/23/21 06:30 04/24/21 10:08 Microbiology Microbiology Results: Microbiology 04/22/21 22:13 Urine Culture - Final Urine Catheterized - Correia Catheter Ana looney Assessment and Plan (1) FTT (failure to thrive) in adult: Status: Acute Assessment and Plan: 80-year-old female with? past medical history of diabetes as well as AFib who presents to the hospital with altered mental status from intermediate. 1.toxic metabolic ? Encephalopathy-? most likely? multifactorial in the setting of hypoxia, COVID-19 infection as well as UTI, metabolic acidosis , chf, afib rvr, hypernatremia , also FTT: continue? UTI with IV antibiotics, oxygen, as well as dexamethasone for COVID- 19, treated? iv antibiotcs , gentle hydration d5ns , diltaizem drip for afib-minmum improvement , d/w son decided for? comfort , no labs , also added comfort meds. waiting for LTC /snf? bed that can accomodate her positive covid status Quality Stroke Does the patient have a stroke diagnosis?: No VTE Prior VTE?: No VTE Risk Level:: Medical - moderate - high VTE Device Contraindication: Treatment Not Indicated VTE Drug Contraindication: N/A - Med Ordered
[2021-04-27 16:00] VITALS: RESP 18
[2021-04-27] MEDS: Morphine Sulfate 2 MG/ML CARTRIDGE IVPUSH (22:28)
[2021-04-27] MEDS: cefTRIAXone sodium 1 GM in 0.9 % Sodium Chloride 50 ML IV (22:32)
[2021-04-27 23:35] VITALS: RESP 13
--- NOTE | 2021-04-28 08:08 | HO.PM.IMPN ---
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 nonverbal,comfortable. cvs:? irregular rythem, [id number]. res: clear to auscultation. abd: soft,bs present. ext pulses present , no cyanosis . Objective Data Active Medications Acetaminophen (Acetaminophen Supp 650 Mg Supp.Rect) 650 mg [place] Q6H PRN PRN Reason: Pain, Mild (Pain Scale 1-3) Dexamethasone Sodium Phosphate (Dexamethasone Sod Phosphate 4 Mg/Ml Vial) 6 mg IVPUSH DAILY [facility] Last Admin: 04/27/21 07:53 Dose: 6 mg Documented by: FAYE Glucose (Glucose Gel 15 Gm Gel..Gram.) 15 gm PO Q15M PRN; Protocol PRN Reason: per Hypoglycemia Standing Ord. Ceftriaxone Sodium 1 gm/ (Sodium Chloride) 50 mls @ 100 mls/hr IV Q24H [facility] Last Infusion: 04/27/21 23:05 Dose: 0 mls/hr Documented by: JACINTA Lorazepam (Lorazepam 0.5 Mg Tablet) 0.5 mg SUBLINGUAL Q4H PRN PRN Reason: anxiety/restlessness Morphine Sulfate (Morphine Sulfate 2 Mg/Ml Cartridge) 2 mg IVPUSH Q6H PRN PRN Reason: Discomfort/Shortness of breath Last Admin: 04/27/21 22:28 Dose: 2 mg Documented by: JACINTA Ondansetron HCl (Ondansetron Hcl 4 Mg/2 Ml Vial) 4 mg IVPUSH Q8H PRN PRN Reason: Nausea and Vomiting Pharmacy Consult (Consult Rx Vancomycin Dosing) 1 each MISCELLANE DAILY PRN PRN Reason: Consult order Sodium Chloride (0.9 % Sodium Chloride Flush 3 Ml Syringe) 3 ml IVFLUSH QSHIFT [facility] Last Admin: 04/27/21 23:45 Dose: 3 ml Documented by: JACINTA Labs CBC & Chem 7: 04/23/21 06:30 04/24/21 10:08 Microbiology Microbiology Results: Microbiology 04/22/21 17:27 Blood Culture - Final Blood - Venous No growth after 5 days. Assessment and Plan (1) FTT (failure to thrive) in adult: Status: Acute (2) UTI (urinary tract infection): Status: Acute (3) Atrial fibrillation with RVR: Status: Acute (4) Acute respiratory failure with hypoxia: Status: Acute Assessment and Plan: 80-year-old female with? past medical history of diabetes as well as AFib who presents to the hospital with altered mental status from long term. 1.toxic metabolic ? Encephalopathy-? most likely? multifactorial in the setting of hypoxia, COVID-19 infection as well as UTI, metabolic acidosis , chf, afib rvr, hypernatremia , also FTT: continue? UTI with IV antibiotics, oxygen, as well as dexamethasone for COVID-19, treated? iv antibiotcs , gentle hydration d5ns , diltaizem drip for afib-minmum improvement , d/w son decided for? comfort , no labs , also added comfort meds. waiting for LTC /snf? bed that can accomodate her positive covid status. Quality Stroke Does the patient have a stroke diagnosis?: No VTE Prior VTE?: No VTE Risk Level:: Medical - moderate - high VTE Device Contraindication: Treatment Not Indicated VTE Drug Contraindication: N/A - Med Ordered
[2021-04-28] MEDS: 0.9 % Sodium Chloride Flush 3 ML SYRINGE IVFLUSH (10:33)
[2021-04-28] MEDS: dexAMETHasone sod phosphate 4 MG/ML VIAL 6 MG IVPUSH (10:33)
[2021-04-28 20:53] VITALS: BP 173/115; PULSE 103; RESP 15; TEMP 36.1; O2SAT 96
[2021-04-29] VITALS: RESP 16
[2021-04-29] MEDS: 0.9 % Sodium Chloride Flush 3 ML SYRINGE IVFLUSH ×3 (01:13→16:17)
--- NOTE | 2021-04-29 07:52 | HO.PM.IMPN ---
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 nonverbal,comfortable. cvs:? irregular rythem, [id number]. res: clear to auscultation. abd: soft,bs present. ext pulses present , no cyanosis . Objective Data Active Medications Acetaminophen (Acetaminophen Supp 650 Mg Supp.Rect) 650 mg [place] Q6H PRN PRN Reason: Pain, Mild (Pain Scale 1-3) Dexamethasone Sodium Phosphate (Dexamethasone Sod Phosphate 4 Mg/Ml Vial) 6 mg IVPUSH DAILY [facility] Last Admin: 04/28/21 10:33 Dose: 6 mg Documented by: NANDINI Glucose (Glucose Gel 15 Gm Gel..Gram.) 15 gm PO Q15M PRN; Protocol PRN Reason: per Hypoglycemia Standing Ord. Lorazepam (Lorazepam 0.5 Mg Tablet) 0.5 mg SUBLINGUAL Q4H PRN PRN Reason: anxiety/restlessness Morphine Sulfate (Morphine Sulfate 2 Mg/Ml Cartridge) 2 mg IVPUSH Q6H PRN PRN Reason: Discomfort/Shortness of breath Last Admin: 04/27/21 22:28 Dose: 2 mg Documented by: JACINTA Ondansetron HCl (Ondansetron Hcl 4 Mg/2 Ml Vial) 4 mg IVPUSH Q8H PRN PRN Reason: Nausea and Vomiting Pharmacy Consult (Consult Rx Vancomycin Dosing) 1 each MISCELLANE DAILY PRN PRN Reason: Consult order Sodium Chloride (0.9 % Sodium Chloride Flush 3 Ml Syringe) 3 ml IVFLUSH QSHIFT [facility] Last Admin: 04/29/21 01:13 Dose: 3 ml Documented by: DAYAMI Labs CBC & Chem 7: 04/23/21 06:30 04/24/21 10:08 Microbiology Microbiology Results: Microbiology 04/24/21 00:17 Blood Culture - Final Blood - Venous No growth after 5 days. 04/24/21 00:22 Blood Culture - Final Blood - Venous No growth after 5 days. Assessment and Plan (1) FTT (failure to thrive) in adult: Status: Acute (2) Atrial fibrillation with RVR: Status: Acute Assessment and Plan: 80-year-old female with? past medical history of diabetes as well as AFib who presents to the hospital with altered mental status from senior care. 1.toxic metabolic ? Encephalopathy-? most likely? multifactorial in the setting of hypoxia, COVID-19 infection as well as UTI, metabolic acidosis , chf, afib rvr, hypernatremia , also FTT: continue? UTI with IV antibiotics, oxygen, as well as dexamethasone for COVID-19, treated? iv antibiotcs , gentle hydration d5ns , diltaizem drip for afib-minmum improvement , d/w son decided for? comfort , no labs , also added comfort meds. waiting for LTC /snf? bed that can accomodate her positive covid status. Quality Stroke Does the patient have a stroke diagnosis?: No VTE Prior VTE?: No VTE Risk Level:: Medical - moderate - high VTE Device Contraindication: Treatment Not Indicated VTE Drug Contraindication: N/A - Med Ordered
[2021-04-29 08:00] VITALS: RESP 18
[2021-04-29] MEDS: dexAMETHasone sod phosphate 4 MG/ML VIAL 6 MG IVPUSH (09:29)
--- NOTE | 2021-04-29 14:53 | MHC.CLN ---
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 NO INTAKE DOCUMENTED. DIET CONTINUES FEED FROM FLOOR STOCK. RD TO FOLLOW WEEKLY.
[2021-04-29 16:00] VITALS: RESP 18
[2021-04-29 23:36] VITALS: RESP 20
--- NOTE | 2021-04-30 07:33 | HO.PM.IMPN ---
Subjective Subjective Date of Service: 04/30/21 Physical Exam Vital Signs: Vital Signs: Last Vital Signs Temp 97 F 04/28/21 20:53 Pulse 103 H 04/28/21 20:53 Resp 20 04/29/21 23:36 BP 173/115 H 04/28/21 20:53 Pulse Ox 96 04/28/21 20:53 BMI result Body Mass Index 25.2 Objective Data Active Medications Acetaminophen (Acetaminophen Supp 650 Mg Supp.Rect) 650 mg [place] Q6H PRN PRN Reason: Pain, Mild (Pain Scale 1-3) Dexamethasone Sodium Phosphate (Dexamethasone Sod Phosphate 4 Mg/Ml Vial) 6 mg IVPUSH DAILY [facility] Last Admin: 04/29/21 09:29 Dose: 6 mg Documented by: SURESH Glucose (Glucose Gel 15 Gm Gel..Gram.) 15 gm PO Q15M PRN; Protocol PRN Reason: per Hypoglycemia Standing Ord. 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 04/24/21 00:22 Blood Culture - Final Blood - Venous No growth after 5 days. Quality Stroke Does the patient have a stroke diagnosis?: No VTE Prior VTE?: No VTE Risk Level:: Medical - moderate - high VTE Device Contraindication: Treatment Not Indicated VTE Drug Contraindication: N/A - Med Ordered
[2021-04-30 08:00] VITALS: BP 140/70; PULSE 94; RESP 24; TEMP 36.8; O2SAT 95
[2021-04-30] MEDS: 0.9 % Sodium Chloride Flush 3 ML SYRINGE IVFLUSH (09:07)
[2021-04-30] MEDS: dexAMETHasone sod phosphate 4 MG/ML VIAL 6 MG IVPUSH (09:08)
[2021-04-30 10:57] LABS: COVID-19 Test Positive (Negative)
--- NOTE | 2021-04-30 11:27 | P.CDIC_ITS ---
CDI Concurrent Query Documentation Clarification: PHYSICIAN'S DOCUMENTATION REQUEST Date of Query: 04/30/21 1127 Patient Name: Sun Anderson Admit Date: 04/22/21 Dear Doctor, A review of the medical record indicates additional documentation may be needed. Please review below and update the documentation accordingly. Clinical Indicators: Risk Factors/Clinical Indicators/Treatments met-toxic encephalopathy, Covid, UTI, metabolic acidosis, CHF, Afib. BNP 347 IV Furosemide CXR demonstrating edema No history of CHF Echo performed. Please provide further specificity regarding the most likely type and acuity of CHF you are evaluating, treating, or monitoring. Examples include: Congestive heart failure Type: * Systolic * Diastolic * Combined Systolic/Diastolic * Other ? please specify * Unable to determine Acuity: * Acute * Chronic * Acute on chronic * Unable to determine Use of terms such as suspected, likely, concern for, or probable (associated with a specific diagnosis that is being evaluated, monitored, or treated as if it exists) are acceptable and can be coded in the inpatient setting, when documented at the time of discharge. Thank you, Lucille Crooks [facility], CDIS Extension: [phone] Please use your independent medical judgment in providing your response. THIS QUERY IS PART OF THE PERMANENT MEDICAL RECORD Provider Response: Other Other Diagnosis: chf -unclear etiology
--- NOTE | 2021-04-30 11:34 | MHC.CM.PN ---
pt to be dcd today to [facility] at 2:00 via amb son stephen notified of dc
--- NOTE | 2021-04-30 13:30 | PM.DS ---
DS: Providers Provider Date of Service: 04/30/21 Date of admission: 04/22/21 21:19 Primary care physician: Unknown Physician Consults: 04/23/21 05:57 Consult to Cardiology Routine Consulting Provider: Edson Padilla Reason for consultation: CHF Has provider been notified: No 04/23/21 14:33 Consult to Infectious Diseases Routine Consulting Provider: Rula Reddnig Reason for consultation: acute hypoxemic resp failure sec to covid Has provider been notified: No 04/24/21 07:37 Consult to Pulmonology Routine Consulting Provider: Thiago Ynu Reason for consultation: Acute hypoxemic respiratory failure multifactorial. Has provider been notified: No DS: Diagnosis Discharge Diagnosis (1) FTT (failure to thrive) in adult: Status: Acute (2) Atrial fibrillation with RVR: Status: Acute DS: Summary Hospital Course Hospital Course: 1-year-old female with? history of AFib, diabetes who sent to the hospital from prison with altered mental status.? Patient? had tested positive for COVID-19 on 04/13/2021 and has been at the COVID [facility] at the prison since then but has developed altered mental status over the past few days and therefore sent to the ED for further evaluation.? History is obtained mostly from ED PA as patient is very altered and unable to give her own history. ? On arrival to the ED patient was found to have heart rate of 154 in AFib with RVR, respiratory rate of 22, blood pressure 156/80, satting 99% on non-rebreather ?labs were found to be significant for pH of 7.20 bicarb of 13, BUN of 44, creatinine of 1.24, BNP of 347, and a UA that is positive for leukocyte Estrace and WBC.? COVID-19 positive. ? Chest x-ray shows increased bilateral per her all linear markings in suggestive of PNA vs edema Pt given multiple dose iv? push Cardizem with some affect on the heart rate but heart rate keeps going up to the 120s.? Patient started on Cardizem drip. ? Unable to obtain accurate past medical history as patient is altered.? some Past medical history is a presumed? her home medications. Hospital course: 80-year-old female with? past medical history of diabetes as well as AFib who presents to the hospital with altered mental status from prison. toxic metabolic ? Encephalopathy-? most likely? multifactorial in the setting of hypoxia, COVID-19 infection as well as UTI, metabolic acidosis , chf, afib rvr, hypernatremia , also FTT:started on antibiotcs , gentle hydration d5ns , diltaizem drip for afib,oxygen, iv lasix for chf, as well as dexamethasone for COVID-19- patient had minimum improvement , also has failure to thigh family decided for? comfort . Above management discussed with the patient in detail length she understand and in agreement with the above plan, time spent 50 minutes and 50% time spent on counseling. Significant findings: As above. Procedures performed: None. Treatment and response: As above. Complications: None. Time Spent with Patient Time attestation: Total time spent providing and/or coordinating discharge services: Discharge coordination time: Greater than 30 minutes Quality: Stroke Does the patient have a stroke diagnosis?: No Physical Exam Vital Signs: Vital Signs: Last Vital Signs Temp 98.2 F 04/30/21 08:00 Pulse 94 04/30/21 08:00 Resp 24 H 04/30/21 08:00 BP 140/70 H 04/30/21 08:00 Pulse Ox 95 04/30/21 08:00 BMI result Body Mass Index 25.2 ? Appearance: ? nonverbal,comfortable. cvs:? irregular rythem, [id number]. res: clear to auscultation. abd: soft,bs present. ext pulses present , no cyanosis . DS: Data Data Completed and Pending Labs on day of discharge: Laboratory Results - last 24 hr 04/30/21 10:30 COVID-19 ([facility]ELINDA) Positive A COVID-19 Clin Com See Note Additional Comments Additional comments: XR/XR chest 1V IMPRESSION: Increased bilateral parahilar linear markings in density suggestive of interstitial pneumonitis or edema. Discharge Plan Discharge Patient Disposition: Xfer SNF Discharge Diagnosis: failure to thrive, acute hypoxemic respiratory failure secondary to COVID, CHF, UTI, toxic metabolic encephalopathy multifactorial. Hypernatremia Referrals: [facility] [Other] - 1 Week Physician,Unknown J [Primary Care Provider] - 1 Week Discharge Medications: New hyoscyamine sulfate [Levsin/SL] 0.125 mg tablet, sublingual 0.25 mg PO QID PRN (Reason: secreation) Qty: 10 RF: 0 lorazepam 2 mg/mL concentrate 0.5 mg PO TID PRN (Reason: agitation) Qty: 30 RF: 0 morphine concentrate 100 mg/5 mL (20 mg/mL) solution 5 mg PO Q6H PRN (Reason: pain) Qty: 30 RF: 0 Continued multivitamin Tablet 1 tab PO DAILY RF: 0 metformin 500 mg tablet 1 tab PO BEDTIME RF: 0 acetaminophen 325 mg Tablet 650 mg PO Q4H PRN (Reason: Pain) RF: 0 loperamide 2 mg Tablet 2 mg PO QID PRN (Reason: Diarrhea) RF: 0 bisacodyl 10 mg Suppository 10 mg IA DAILY PRN (Reason: Constipation) RF: 0 metformin 1,000 mg tablet 1 tab PO DAILY RF: 0 cholestyramine (with sugar) 4 gram powder in packet 1 packet PO BID RF: 0 metoprolol tartrate 25 mg tablet 1 tab PO BID RF: 0 Eliquis 5 mg tablet 1 tab PO BID RF: 0 Discharge Orders: Discharge Order (Routine); Ordered 04/30/21 Ordered By: Luisa Vasquez Diet: advance to usual diet Activity on Discharge: As tolerated Stand Alone Forms: Patient Portal Discharge page Care Plan Goals: 80-year-old female with? past medical history of diabetes as well as AFib who presents to the hospital with altered mental status from prison. toxic metabolic ? Encephalopathy-? most likely? multifactorial in the setting of hypoxia, COVID-19 infection as well as UTI, metabolic acidosis , chf, afib rvr, hypernatremia , also FTT:started on antibiotcs , gentle hydration d5ns , diltaizem drip for afib,oxygen, iv lasix for chf, as well as dexamethasone for COVID-19- patient had minimum improvement , also has failure to thigh family decided for? comfort . Health Concerns: as above. Plan of Treatment: as above. Assessment: as above.
[2021-05-01 02:36] LABS: Beta-Hydroxybutyrate 4.12 mmol/L
== END 2021-04-30 16:03 | disposition skilled nursing facility (03) | DRG 177 ==
LOC: HO.ED 20:57 → HO.EDOVER 21:22 → HO.IMC 04-24 00:39
PROVIDERS: Hospitalist; Nurse Practitioner Family; Admitting Provider Internal Medicine; Emergency Provider Internal Medicine; Visit Provider Internal Medicine
DX: U07.1 COVID-19 (principal); J96.01 Acute respiratory failure with hypoxia; J12.82 Pneumonia due to coronavirus disease 2019; G92.8 Other toxic encephalopathy; N39.0 Urinary tract infection, site not specified; E87.2 Acidosis; E87.0 Hyperosmolality and hypernatremia; R62.7 Adult failure to thrive; Z68.25 Body mass index [BMI] 25.0-25.9, adult; I48.91 Unspecified atrial fibrillation; I50.9 Heart failure, unspecified; E11.9 Type 2 diabetes mellitus without complications; Z87.891 Personal history of nicotine dependence; Z79.01 Long term (current) use of anticoagulants; Z79.84 Long term (current) use of oral hypoglycemic drugs; Z79.899 Other long term (current) drug therapy
CPT/HCPCS: 36415; 71045; 80048; 80076; 80179; 81001; 82009; 82010; 82803; 82947; 83605; 83690; 83880; 84484; 85025; 85610; 85730; 87040; 87086; 87088; 87147; 87186; 87205; 87635; 93005; 93306; 99285; J0456; J0696; J1100; J1940; J2270; J3370